=== PATIENT | male | born 1935 | race Caucasian/White ===

== ENCOUNTER 2018-02-15 08:57 | Outpatient (CLI) | payer MEDICARE, OTHER ==
[2018-02-15 09:32] LABS: BASOPHILS % (AUTO) 0.3 % (0-1); EOSINOPHILS # (AUTO) 0.2 X10'3 (0-0.9); EOSINOPHILS % (AUTO) 4.8 % (0-6); HEMATOCRIT 35.6 % (42.0-52.0); LYMPHOCYTES # (AUTO) 1.2 X10'3 (1.1-4.8); LYMPHOCYTES % (AUTO) 28.1 % (21-51); MEAN CORPUSCULAR HEMOGLOBIN 31.8 PG (27.0-31.0); MEAN CORPUSCULAR HGB CONC 33.8 % (33.0-36.5); MEAN CORPUSCULAR VOLUME 94.1 FL (78-98); MEAN PLATELET VOLUME 6.9 FL (7.4-10.4); MONOCYTES # (AUTO) 0.5 X10'3 (0-0.9); MONOCYTES % (AUTO) 10.7 % (2-12); NEUTROPHILS # (AUTO) 2.5 X10'3 (1.8-7.7); NEUTROPHILS % (AUTO) 56.1 % (42-75); PLATELET COUNT 187 X10'3 (140-440); RED BLOOD COUNT 3.79 X10'6 (4.70-6.10); RED CELL DISTRIBUTION WIDTH 13.8 % (11.5-14.5); WHITE BLOOD COUNT 4.4 X10'3 (4.5-11.0)
[2018-02-15 09:40] LABS: HEMOGLOBIN A1C 6.7 % (4.5-6.2)
[2018-02-15 09:45] LABS: ANION GAP 9 (8-16); BLOOD UREA NITROGEN 26 MG/DL (7-18); BUN/CREATININE RATIO 19.3 (5.4-32.0); CHLORIDE 107 MMOL/L (99-107); CREATININE 1.35 MG/DL (0.60-1.10); GLUCOSE 133 MG/DL (70-104); POTASSIUM 4.4 MMOL/L (3.5-5.1); SODIUM 143 MMOL/L (135-145); TOTAL CARBON DIOXIDE 27.1 MMOL/L (24-32)
[2018-02-15 09:46] LABS: ALANINE AMINOTRANSFERASE 19 U/L (12-78); ALBUMIN 3.3 G/DL (3.4-5.0); ALBUMIN/GLOBULIN RATIO 0.8 (1.1-1.5); ALKALINE PHOSPHATASE 55 IU/L (46-116); ASPARTATE AMINO TRANSFERASE 19 U/L (10-37); BILIRUBIN,TOTAL 0.5 MG/DL (0.1-1.0); CALCIUM 8.7 MG/DL (8.5-10.1); CHOLESTEROL 182 MG/DL (0-200); HDL CHOLESTEROL 45 MG/DL (35-60); LDL CHOLESTEROL 97 MG/DL (50-100); TOTAL PROTEIN 7.2 G/DL (6.4-8.2); TRIGLYCERIDES 254 MG/DL (20-135); eGFR 50 ML/MIN
== END 2018-02-15 23:59 | disposition home or self-care (01) ==
LOC: CARD DIAG 08:57
PROVIDERS: ATTEND Internal Medicine Cardiovascular Disease
DX: I08.1 Rheumatic disorders of both mitral and tricuspid valves (principal); I50.22 Chronic systolic (congestive) heart failure; Z95.2 Presence of prosthetic heart valve; Z87.891 Personal history of nicotine dependence
CPT/HCPCS: 36415; 80053; 80061; 83036; 85025; 93306

== ENCOUNTER 2018-07-10 13:06 | Outpatient (CLI) | payer MEDICARE, OTHER | END 2018-07-10 23:59 | disposition home or self-care (01) | LOC: CARD DIAG 13:06 | PROVIDERS: ATTEND Internal Medicine Cardiovascular Disease | DX: I08.1 Rheumatic disorders of both mitral and tricuspid valves (principal); I50.22 Chronic systolic (congestive) heart failure; Z87.891 Personal history of nicotine dependence | CPT/HCPCS: 93306 ==

== ENCOUNTER 2018-07-19 10:20 | Outpatient (CLI) | payer MEDICARE, OTHER ==
[2018-07-19 11:54] LABS: ALBUMIN 3.3 G/DL (3.4-5.0); ANION GAP 9 (8-16); BLOOD UREA NITROGEN 41 MG/DL (7-18); BUN/CREATININE RATIO 31.1 (5.4-32.0); CALCIUM 9.2 MG/DL (8.5-10.1); CHLORIDE 105 MMOL/L (99-107); CREATININE 1.32 MG/DL (0.60-1.10); GLUCOSE 134 MG/DL (70-104); POTASSIUM 4.2 MMOL/L (3.5-5.1); SODIUM 141 MMOL/L (135-145); TOTAL CARBON DIOXIDE 27.3 MMOL/L (24-32); eGFR 52 ML/MIN
== END 2018-07-19 23:59 | disposition home or self-care (01) ==
LOC: LAB 10:20
PROVIDERS: ATTEND Internal Medicine Cardiovascular Disease
DX: I51.7 Cardiomegaly (principal); I50.22 Chronic systolic (congestive) heart failure; Z87.891 Personal history of nicotine dependence
CPT/HCPCS: 36415; 71046; 80048

== ENCOUNTER 2019-05-07 13:02 | Outpatient (CLI) | payer MEDICARE, OTHER | END 2019-05-07 23:59 | disposition home or self-care (01) | LOC: CARD DIAG 13:02 | PROVIDERS: ATTEND Nurse Practitioner Adult Health | DX: I34.0 Nonrheumatic mitral (valve) insufficiency (principal); I50.30 Unspecified diastolic (congestive) heart failure; Z87.891 Personal history of nicotine dependence; Z95.1 Presence of aortocoronary bypass graft | CPT/HCPCS: 93306 ==

== ENCOUNTER 2019-12-24 14:25 | Inpatient (IN) | payer MEDICARE, OTHER ==
[~2019-12-24] VITALS: Ht 170.2 cm; Wt 94.5 kg
[2019-12-24] VITALS (8 sets, daily range): BP systolic 90–97; BP diastolic 43–51
--- NOTE | 2019-12-24 14:50 | NUR ---
REPORTED SXS AND HX OF FEVER TO PROVIDER KIMBERLY DEL CASTILLO. PT TO BE EVALUATED/SCREENED IN AMBULANCE BAY BY PROVIDER.
--- NOTE | 2019-12-24 14:59 | NUR ---
PT REPORTED HE WAS NOT FEELING WELL AND NOTED TO BE WITH INCREASED RESPIRATIONS. PTS O2 SATS STARTED TO DECLINE (78-84%). PROVIDER SINGH UPDATED AND PT TAKEN TO BED 5 PER BAR WELDER KELLY.
[2019-12-24 15:01] LABS: BASOPHILS % (AUTO) 0.3 % (0-1); EOSINOPHILS % (AUTO) 0 % (0-6); HEMATOCRIT 28.4 % (42.0-52.0); HEMOGLOBIN 9.5 g/dl (14.0-17.9); LYMPHOCYTES # (AUTO) 0.2 X10'3 (1.1-4.8); LYMPHOCYTES % (AUTO) 2.2 % (21-51); MEAN CORPUSCULAR HEMOGLOBIN 32.5 PG (27.0-31.0); MEAN CORPUSCULAR HGB CONC 33.5 g/dL (33.0-36.5); MEAN CORPUSCULAR VOLUME 97.1 FL (78-98); MEAN PLATELET VOLUME 7.6 FL (7.4-10.4); MONOCYTES # (AUTO) 0.3 X10'3 (0-0.9); MONOCYTES % (AUTO) 3.3 % (2-12); NEUTROPHILS # (AUTO) 7.3 X10'3 (1.8-7.7); NEUTROPHILS % (AUTO) 94.2 % (42-75); PLATELET COUNT 122 X10'3 (140-440); RED BLOOD COUNT 2.93 X10'6 (4.70-6.10); RED CELL DISTRIBUTION WIDTH 14.1 % (11.5-14.5); WHITE BLOOD COUNT 7.8 X10'3 (4.5-11.0)
[2019-12-24 15:35] LABS: ALANINE AMINOTRANSFERASE 29 U/L (12-78); ALBUMIN/GLOBULIN RATIO 0.7 (1.1-1.5); ALKALINE PHOSPHATASE 52 IU/L (46-116); ANION GAP 14 (8-16); ASPARTATE AMINO TRANSFERASE 55 U/L (10-37); BILIRUBIN,TOTAL 0.4 MG/DL (0.1-1.0); BLOOD UREA NITROGEN 59 MG/DL (7-18); CALCIUM 8.3 MG/DL (8.5-10.1); CHLORIDE 106 MMOL/L (99-107); CREATININE 2.68 MG/DL (0.60-1.10); GLUCOSE 191 MG/DL (70-104); POTASSIUM 4.4 MMOL/L (3.5-5.1); SODIUM 140 MMOL/L (135-145); TOTAL CARBON DIOXIDE 20.1 MMOL/L (24-32); TOTAL PROTEIN 7.1 G/DL (6.4-8.2); eGFR 23 ML/MIN
[2019-12-24] MEDS ORDERED: ondansetron/PF 4mg/2ml inj IV ONE (15:35)
[2019-12-24 15:56] LABS: ABG BASE EXCESS -8.2 mmol/L (-2.0-3.0); ABG HCO3 16.7 mmol/L (22.0-26.0); ABG OXYGEN SATURATION 91.2 % (95-98); ABG PCO2 (T) 31.8 mmHg (35.0-45.0); ABG PH (T) 7.337 (7.350-7.450); ABG PO2 (T) 62.6 mmHg (83-108); ALLEN'S TEST POSITIVE; FCOHb 0.3 % (0.5-1.5); FLOW 2 L/min; FMetHb 0.1 % (0.3-1.12); FO2Hb 90.8 % (94-100); PATIENT TEMPERATURE 36.9; TOTAL HEMOGLOBIN 10.5 G/dl (14.0-17.9)
[2019-12-24] MEDS ORDERED: CefTRIAXone 2gm/D5W 50ml 50 ML IV ONE (16:15)
--- NOTE | 2019-12-24 16:15 | NUR ---
CENTRAL LINE PLACEMENT VERIFIED VIA ULTRASOUND AT BEDSIDE BY MIGUEL ANGEL ARREOLA TO USE LINE PER .
[2019-12-24] MEDS ORDERED: heparin 10,000 units/1 ML INJ IV ONE (16:20)
[2019-12-24] MEDS ORDERED: heparin 10,000 units/1 ML INJ IV PRN (16:20)
[2019-12-24] MEDS ORDERED: doxycycline inj 100 MG in normal saline 100ml IV soln 100 ML IV ONE (16:20)
[2019-12-24 16:38] LABS: CLARITY,URINE SLIGHTLY CLOUDY (Clear); COLOR,URINE YELLOW (Yellow); GLUCOSE, URINE NEGATIVE (Neg); KETONES,URINE NEGATIVE (Neg); LEUKOCYTE ESTERASE ,URINE TRACE (Neg); NITRITES, URINE NEGATIVE (Neg); OCCULT BLOOD,URINE TRACE-INTACT (Neg); PROTEIN,URINE NEGATIVE (Neg); UROBILINOGEN,URINE 0.2 E.U/dL (0.2-1.0)
[2019-12-24 16:41] LABS: UA COLLECTION TYPE VOIDED
[2019-12-24] MEDS: heparin 25,000 UNIT/250ml bag 250 ML IV SCH (16:43)
[2019-12-24 16:46] LABS: BACTERIA,URINE FEW /HPF (Neg); RBC,URINE 0-2 /HPF (0-2); WBC,URINE 0-4 /HPF (0-4)
[2019-12-24 16:47] LABS: SQUAMOUS EPITHELIAL CELL,UR MODERATE /LPF (FEW)
--- NOTE | 2019-12-24 16:59 | NUR ---
FORM MAKER AT BEDSIDE.
[2019-12-24 17:33] LABS: D-DIMER 1.17 MG/L FEU (0-0.50); PARTIAL THROMBOPLASTIN TIME 36 SECONDS (22-32)
[2019-12-24] MEDS ORDERED: magnesium Cl slow-release 64mg tablet PO PRN (17:55)
[2019-12-24] MEDS ORDERED: magnesium 4gm in 100ml NS 100 ML IV PRN (17:55)
[2019-12-24] MEDS ORDERED: potassium Cl 20 mEq SR tablet PO PRN ×2 (17:55)
[2019-12-24] MEDS ORDERED: magnesium 2GM in 50ml NS 50 ML IV PRN (17:55)
[2019-12-24] MEDS ORDERED: acetaminophen 325mg tablet PO PRN (17:55)
[2019-12-24] MEDS ORDERED: potassium CL 10mEq/100ml bag 100 ML IV PRN ×2 (17:55)
[2019-12-24] MEDS ORDERED: ondansetron/PF 4mg/2ml inj IV PRN (17:55)
[2019-12-24] MEDS ORDERED: furosemide 40mg/4ml inj IV ONE (18:00)
[2019-12-24] MEDS ORDERED: DOPamine 400mg/D5W 250ml 250 ML IV SCH (18:45)
--- NOTE | 2019-12-24 18:46 | NUR ---
CONTACTED DR OSUNA REGARDING PATIENT'S HYPOTENSION 82/42. DR OSUNA STATED THAT THE PATIENT NEEDS TO BE ON PRESSER AND ADMITTED TO THE ICU. DR OSUNA REQUESTED TO SPEAK TO DR DE LA CRUZ AT THIS TIME. JUAN HARRIS TOOK CALL.
[2019-12-24] MEDS ORDERED: OMEP-50 PO (19:10)
[2019-12-24] MEDS ORDERED: TERA1CAP4 PO (19:10)
[2019-12-24] MEDS ORDERED: SACU1TAB4 PO (19:10)
[2019-12-24] MEDS ORDERED: BUME2TAB7 PO (19:10)
[2019-12-24] MEDS ORDERED: CARV25TA2 PO (19:10)
[2019-12-24] MEDS ORDERED: GLIP2.5T3 PO (19:10)
[2019-12-24] MEDS ORDERED: RIVA15TA PO (19:10)
[2019-12-24] MEDS ORDERED: ATOR10TA70 PO (19:10)
--- NOTE | 2019-12-24 19:31 | NUR ---
CONTACT INFO: CHRIS "GRANDDAUGHTER":
[2019-12-24] MEDS: docusate sod 100mg capsule PO SCH (20:00)
[2019-12-24] MEDS: K and/or MAG REPLACEMENT MC SCH (20:00)
[2019-12-24 20:10] LABS: ABG BASE EXCESS -3.4 mmol/L (-2.0-3.0); ABG OXYGEN SATURATION 96.4 % (95-98); ABG PCO2 (T) 29.8 mmHg (35.0-45.0); ABG PH (T) 7.443 (7.350-7.450); ABG PO2 (T) 80.6 mmHg (83-108); ALLEN'S TEST POSITIVE; FCOHb 0.3 % (0.5-1.5); FMetHb 0.3 % (0.3-1.12); FO2Hb 95.8 % (94-100); PATIENT TEMPERATURE 36.6; TIDAL VOLUME 664 mL; TOTAL HEMOGLOBIN 10.2 G/dl (14.0-17.9)
--- NOTE | 2019-12-24 20:45 | NUR ---
Pt arrived on unit vitals obtained, mrsa obtained, skin check performed. Will monitor. Report received from RODNEY Garcia
--- NOTE | 2019-12-24 21:05 | NUR ---
Adalid [phone] Kwesi [phone] [facility].
--- NOTE | 2019-12-24 21:40 | NUR ---
Sent to Ash PAGER ID: [phone] MESSAGE: ROOM 3014 B Joshua Luna: Trops: 0.34 0.38 most recent 0.57 on heparin and dobut gtt. New EKG shows ST depression can you come take a look? Thanks, Christine [phone]
[2019-12-24] MEDS ORDERED: ASPI-611 PO (23:19)
[2019-12-24] MEDS ORDERED: FERR325T32 PO (23:19)
--- NOTE | 2019-12-24 23:58 | NUR ---
Sent to [facility] PAGER ID: [phone] MESSAGE: [id number] Joshua Luna: just desireei stopped heparin gtt per protocol for 120 min for critical ptt of 122. Will restart at 0145 and decrease per protocol ThanksChristine (161 character
[2019-12-25] VITALS (17 sets, daily range): BP systolic 83–137; BP diastolic 37–71
--- NOTE | 2019-12-25 00:06 | NUR ---
Patient tried to lay on left side with feet elevated due to his back pain. His BP cannot tolerate this and dropped tp 77/40's so we have sat him back up systolic 100/35. Tanner BELT MAKER HELPER came to see patient and is ok with BP where it is at this time.
[2019-12-25 03:03] LABS: ALBUMIN 2.6 G/DL (3.4-5.0); ANION GAP 10 (8-16); BLOOD UREA NITROGEN 61 MG/DL (7-18); BUN/CREATININE RATIO 26.6 (5.4-32.0); CALCIUM 8.1 MG/DL (8.5-10.1); CHLORIDE 107 MMOL/L (99-107); CREATININE 2.29 MG/DL (0.60-1.10); GLUCOSE 132 MG/DL (70-104); MAGNESIUM 1.7 MG/DL (1.5-2.4); POTASSIUM 4.1 MMOL/L (3.5-5.1); SODIUM 140 MMOL/L (135-145); TOTAL CARBON DIOXIDE 23.4 MMOL/L (24-32); eGFR 27 ML/MIN
--- NOTE | 2019-12-25 03:21 | NUR ---
Sent to [facility] PAGER ID: [phone] MESSAGE: room 3014B Martín, Gert: 12 hr trop 0.73 Thank you, Christine [phone]
--- NOTE | 2019-12-25 03:21 | NUR ---
Spoke with Tanner GUTIERRES earlier in the night. She stated that patients Bp is ok to be slightly lower as long as Map remains high 50's to 60's. Patient BP has been very volatile tonight. Map has been mostly high 50's to 60's. Tanner GUTIERRES informed and is ok with this. I will inform Dr. Aleman as well.
--- NOTE | 2019-12-25 03:26 | NUR ---
room 3014 Joshua Resendiz: Patient BP has been up and down. Map mostly high 50's low 60's varying to mid 50's on dopamine gtt @ 5 mcg/kg/min Thank you, Christine x [phone]
[2019-12-25 04:42] LABS: BASOPHILS # (AUTO) 0.1 X10'3 (0-0.2); BASOPHILS % (AUTO) 0.6 % (0-1); EOSINOPHILS % (AUTO) 0 % (0-6); LYMPHOCYTES # (AUTO) 0.2 X10'3 (1.1-4.8); LYMPHOCYTES % (AUTO) 1.5 % (21-51); MEAN CORPUSCULAR HEMOGLOBIN 32.1 PG (27.0-31.0); MEAN CORPUSCULAR HGB CONC 33.3 g/dL (33.0-36.5); MEAN CORPUSCULAR VOLUME 96.4 FL (78-98); MEAN PLATELET VOLUME 8.1 FL (7.4-10.4); MONOCYTES # (AUTO) 0.9 X10'3 (0-0.9); MONOCYTES % (AUTO) 8.3 % (2-12); NEUTROPHILS # (AUTO) 10.1 X10'3 (1.8-7.7); NEUTROPHILS % (AUTO) 89.6 % (42-75); PLATELET COUNT 101 X10'3 (140-440); RED CELL DISTRIBUTION WIDTH 14.2 % (11.5-14.5); WHITE BLOOD COUNT 11.3 X10'3 (4.5-11.0)
--- NOTE | 2019-12-25 05:03 | NUR ---
Sent to [facility] PAGER ID: [phone] MESSAGE: room 3014 B Joshua Luna: ELAYNE PTT 103 STOPPED heparin per protocol for 2 hrs Thanks, Christine [phone]
[2019-12-25 05:12] LABS: TOTAL CELLS COUNTED 100
[2019-12-25 05:13] LABS: GIANT PLATELET FEW; PLATELET ESTIMATE DECREASED
--- NOTE | 2019-12-25 06:32 | NUR ---
Patient in room PCU 3014. I have received report from Christine STEVENS and had the opportunity to ask questions and assume patient care.
--- NOTE | 2019-12-25 06:32 | NUR ---
Problems reprioritized. Patient report given, questions answered & plan of care reviewed with RODNEY Jones.
--- NOTE | 2019-12-25 06:33 | NUR ---
Patient in room PCU 3014. I have received report from Christine STEVENS and had the opportunity to ask questions and assume patient care.
[2019-12-25] MEDS ORDERED: ferrous sulfate 325mg tablet PO SCH (08:00)
[2019-12-25] MEDS: K and/or MAG REPLACEMENT MC SCH ×2 (08:00→20:00)
[2019-12-25] MEDS: docusate sod 100mg capsule PO SCH ×2 (08:20→20:20)
[2019-12-25] MEDS: DOPamine 400mg/D5W 250ml 250 ML IV SCH (09:06)
--- NOTE | 2019-12-25 09:31 | NUR ---
Sent a page to Dr Bernard, monitoring the patient closely. PAGER ID: [phone] MESSAGE: Karen STEVENS [phone] 3014B G Alethea, patient is a diabetic, can I have hyper/hypoglycemia orders. Do you want this patient still on a heparin gtt? thanks!
--- NOTE | 2019-12-25 11:08 | NUR ---
Sent a page to Dr Bernard PAGER ID: [phone] MESSAGE: Karen STEVENS [phone] 3014B G Yahirke, patient c/o pain, nothing ordered for pain, can I have a prn , thank you! Will continue to monitor the patient closely.
[2019-12-25] MEDS ORDERED: dextrose 50%-water 50ml dispensing syringe IV PRN ×2 (11:15)
[2019-12-25] MEDS ORDERED: dextrose ORAL solution 15 GM/59 ML bottle PO PRN ×2 (11:15)
[2019-12-25] MEDS ORDERED: glucagon, human recombinant 1mg kit SUBCUT PRN (11:15)
[2019-12-25] MEDS ORDERED: MESSAGE TO PHARMACY PO ONE (11:15)
--- NOTE | 2019-12-25 11:18 | NUR ---
Sent a page to Dr Bernard re: PAGER ID: [phone] MESSAGE: Karen STEVENS [phone] 3014B G Cruzitokarla, patient has 3 positive blood cultures, 1 anaerobic and 2 aerobic, gram positive cocci in chains/pairs, thanks! Will continue to monitor closely.
[2019-12-25] MEDS: traMADol 50MG tablet PO PRN ×2 (11:26→20:21)
[2019-12-25] MEDS: VANCOmycin 1250MG/NS 250ml Bag 250 ML IV SCH (14:06)
[2019-12-25 14:26] LABS: HEMOGLOBIN A1C 7.5 % (4.5-6.2)
--- NOTE | 2019-12-25 15:09 | NUR ---
Spoke to Adalid, the patients granddaughter, and updated her on the patients plan of care.
--- NOTE | 2019-12-25 15:31 | NUR ---
Sent a page to Dr Marco Antonio thurman PAGER ID: [phone] MESSAGE: Karen STEVENS [phone] 3014B G Jeremy, c/o new 04/30 neck pain, states tramadol isn't working, visibly uncomfortable, please advise.
[2019-12-25] MEDS: heparin 25,000 UNIT/250ml bag 250 ML IV SCH (17:33)
--- NOTE | 2019-12-25 17:53 | NUR ---
[place] documentation: I have reviewed and agree with all interventions, assessments performed and documented by Tala STEVENS. [place] Medication Administration: For this medication-pass time frame, all medication were reviewed, dispensed, administered and documented per hospital policy by Tala STEVENS.
--- NOTE | 2019-12-25 18:08 | NUR ---
Problems reprioritized. Patient report given, questions answered & plan of care reviewed with Christine STEVENS.
--- NOTE | 2019-12-25 18:08 | NUR ---
Problems reprioritized. Patient report given, questions answered & plan of care reviewed with Christine STEVENS.
--- NOTE | 2019-12-25 18:30 | NUR ---
Patient in room PCU 3014. I have received report from RODNEY Jones and had the opportunity to ask questions and assume patient care.
[2019-12-25] MEDS: insulin glargine (Lantus) pen - multi-dose SQ SCH (21:00)
--- NOTE | 2019-12-25 21:10 | NUR ---
Sent to [facility] PAGER ID: [phone] MESSAGE: room 3014B Joshua Resendiz: Frank can you call to discuss a few things about this patient when you have time? Thank you, Christine [phone]
[2019-12-25] MEDS ORDERED: cyclobenzaprine 10mg tablet PO PRN (21:20)
--- NOTE | 2019-12-25 21:58 | NUR ---
sent to bipin PAGER ID: [phone] MESSAGE: [id number] Martín Lewis : tried to catch you Most recent TROP 0.87 up from 0.73 thanks, Christine [phone]
[2019-12-26] VITALS (11 sets, daily range): BP systolic 95–121; BP diastolic 43–87
[2019-12-26] MEDS: ipratropium/albuterol 3ml nebule IH PRN ×2 (00:16→15:52)
[2019-12-26] MEDS: DOPamine 400mg/D5W 250ml 250 ML IV SCH ×2 (00:24→14:22)
[2019-12-26 03:17] LABS: ALBUMIN 2.3 G/DL (3.4-5.0); ANION GAP 8 (8-16); BASOPHILS % (AUTO) 0.5 % (0-1); BLOOD UREA NITROGEN 59 MG/DL (7-18); BUN/CREATININE RATIO 32.4 (5.4-32.0); CALCIUM 8.2 MG/DL (8.5-10.1); CHLORIDE 106 MMOL/L (99-107); CREATININE 1.82 MG/DL (0.60-1.10); GLUCOSE 190 MG/DL (70-104); HEMOGLOBIN 9.9 g/dl (14.0-17.9); MONOCYTES # (AUTO) 2.4 X10'3 (0-0.9); SODIUM 139 MMOL/L (135-145); TOTAL CARBON DIOXIDE 24.9 MMOL/L (24-32); eGFR 36 ML/MIN
[2019-12-26 03:19] LABS: BASOPHILS # (AUTO) 0.1 X10'3 (0-0.2); EOSINOPHILS % (AUTO) 0 % (0-6); HEMATOCRIT 29.6 % (42.0-52.0); LYMPHOCYTES # (AUTO) 0.6 X10'3 (1.1-4.8); LYMPHOCYTES % (AUTO) 5.6 % (21-51); MEAN CORPUSCULAR HEMOGLOBIN 32.2 PG (27.0-31.0); MEAN CORPUSCULAR HGB CONC 33.4 g/dL (33.0-36.5); MEAN CORPUSCULAR VOLUME 96.4 FL (78-98); MEAN PLATELET VOLUME 9.4 FL (7.4-10.4); MONOCYTES % (AUTO) 24.4 % (2-12); NEUTROPHILS # (AUTO) 6.9 X10'3 (1.8-7.7); NEUTROPHILS % (AUTO) 69.5 % (42-75); PLATELET COUNT 103 X10'3 (140-440); RED BLOOD COUNT 3.07 X10'6 (4.70-6.10); RED CELL DISTRIBUTION WIDTH 14.2 % (11.5-14.5); WHITE BLOOD COUNT 9.9 X10'3 (4.5-11.0)
[2019-12-26 03:56] LABS: TOTAL CELLS COUNTED 100
[2019-12-26 03:58] LABS: GIANT PLATELET FEW; PLATELET ESTIMATE DECREASED
--- NOTE | 2019-12-26 06:26 | NUR ---
Problems reprioritized. Patient report given, questions answered & plan of care reviewed with RODNEY Prince.
--- NOTE | 2019-12-26 06:26 | NUR ---
Patient in room PCU 3014B. I have received report from Christine STEVENS and had the opportunity to ask questions and assume patient care. Patient laying in bed, eyes closed, no signs of distress. Heparin gtt infusing @ 400 units/hr. Dopamine infusing @ 5mcg/kg/min.
[2019-12-26] MEDS: docusate sod 100mg capsule PO SCH ×2 (07:35→20:36)
[2019-12-26] MEDS: traMADol 50MG tablet PO PRN (07:35)
[2019-12-26] MEDS: K and/or MAG REPLACEMENT MC SCH ×2 (08:00→20:00)
[2019-12-26] MEDS ORDERED: CefTRIAXone 2gm/D5W 50ml 50 ML IV SCH (08:45)
--- NOTE | 2019-12-26 11:44 | NUR ---
PAGER ID: [phone] MESSAGE: Niki chavis [phone]. RE Mercedes Luna [id number]. Pt having significant neck/shoulder pain and stiffness. Got one time dose of flexeril PO last night with some relief. Can we get something PRN for this? Thanks!
[2019-12-26] MEDS ORDERED: cyclobenzaprine 10mg tablet PO ONE (12:10)
--- NOTE | 2019-12-26 13:02 | NUR ---
Pt with A1c 7.5% seen at bedside. Pt states he has T2DM and takes DM medications per rx. Pt denies questions about DM management at this time. Pt provided with written DM education with referral to outpatient CDE course. Pt currently reporting no appetite which is evident with documented 25-50% PO intake on heart healthy CHO controlled diet not meeting nutrient needs. Pt reports low appetite is new onset since admit and was eating well MYSQL DBA. Pt provided with alternative menu to provide additional food options. Pt agrees to yogurt and cottage cheese BIDBD and soup q lunch, d/w dietary. Pt denies food allergies or difficulty chewing/swallowing. LBM 5/4 which pt reports was in the morning and c/o constipation. Pt receiving routine bowel care and reports drinking prune juice yesterday. Pt agrees to power pudding with dinner tonight, d/w dietary. RD contact information provided and pt encouraged to reach out. Will continue to follow. Addendum: 12/26/19 at [address] Amended: Links added.
[2019-12-26] MEDS: VANCOmycin 1250MG/NS 250ml Bag 250 ML IV SCH (13:36)
--- NOTE | 2019-12-26 15:30 | NUR ---
Notified by [employer] that patient dropped oxygen saturation into the mid 60% on 3.5L NC. Went to bedside immediately and oxygen saturation was in the mid 70's with increased SOB/cough and increased RR. Pt states increased SOB and cough started around 1200 today but worse in the past few minutes. Patient ill appearing with increased RR. After several minutes and cough/deep breathe patient oxygen saturation improved to mid 90% on 3.5L NC. Paged Dr. Benavidez regarding patient at this time. disciplinary hearing officer, Lizzeth/Julia, also notified and evaluated patient at bedside.
--- NOTE | 2019-12-26 15:37 | NUR ---
PAGER ID: [phone] MESSAGE: Niki chavis [phone]. RE Mercedes Luna 7194H. Pt desated to the mid 60's% on 3.5L NC. Took several minutes to recover, c/o increased SOB and cough. Ill appearing. Do you want any additional interventions? Paging RT for neb. Thanks!
--- NOTE | 2019-12-26 15:44 | NUR ---
Orders from Dr. Benavidez received for stat ABG, RT eval and treat as well as neb by RT and will come eval at bedside. tire mold engraver updated on plan of care. Will continue to closely monitor the patient.
[2019-12-26 16:01] LABS: ABG BASE EXCESS -3.1 mmol/L (-2.0-3.0); ABG HCO3 21.1 mmol/L (22.0-26.0); ABG OXYGEN SATURATION 93.7 % (95-98); ABG PH (T) 7.399 (7.350-7.450); ABG PO2 (T) 68.6 mmHg (83-108); ALLEN'S TEST POSITIVE; FCOHb 0.3 % (0.5-1.5); FLOW 4 L/min; FMetHb 0.2 % (0.3-1.12); FO2Hb 93.2 % (94-100); TOTAL HEMOGLOBIN 11.3 G/dl (14.0-17.9)
--- NOTE | 2019-12-26 16:25 | NUR ---
Problems reprioritized. Patient report given, questions answered & plan of care reviewed with Lion RN. Patient sitting up in bed, eating dinner, states that he feels "a little better than earlier", VS stable at time of report.
[2019-12-26] MEDS ORDERED: HYDROcodone/acetaminophen 5mg/325mg tablet PO PRN (16:45)
[2019-12-26] MEDS: normal saline 1000ml 1,000 ML IV SCH (16:50)
--- NOTE | 2019-12-26 18:30 | NUR ---
Patient in room PCU 3014. I have received report from Niki Ortega RN and had the opportunity to ask questions and assume patient care.
[2019-12-26] MEDS: atorvastatin 10mg tablet PO SCH (20:36)
[2019-12-26] MEDS: Terazosin 1mg capsule PO SCH (20:36)
[2019-12-26] MEDS: carVEDilol 3.125mg tablet PO SCH (20:36)
[2019-12-26] MEDS: lactobacillus rhamnosus 10,000 MMU CELLS/CAPSULE PO SCH (20:36)
[2019-12-26] MEDS: insulin glargine (Lantus) pen - multi-dose SQ SCH (21:00)
[2019-12-27] VITALS (13 sets, daily range): BP systolic 95–137; BP diastolic 49–107
[2019-12-27] MEDS: DOPamine 400mg/D5W 250ml 250 ML IV SCH ×3 (05:31→22:52)
[2019-12-27 05:53] LABS: HEMOGLOBIN 9.7 g/dl (14.0-17.9); RED CELL DISTRIBUTION WIDTH 14.1 % (11.5-14.5); WHITE BLOOD COUNT 7.9 X10'3 (4.5-11.0)
[2019-12-27 05:57] LABS: HEMATOCRIT 28.5 % (42.0-52.0); MEAN CORPUSCULAR HEMOGLOBIN 32.5 PG (27.0-31.0); MEAN CORPUSCULAR HGB CONC 33.9 g/dL (33.0-36.5); MEAN CORPUSCULAR VOLUME 95.7 FL (78-98); MEAN PLATELET VOLUME 9.7 FL (7.4-10.4); PLATELET COUNT 92 X10'3 (140-440); RED BLOOD COUNT 2.98 X10'6 (4.70-6.10)
[2019-12-27 06:08] LABS: ALBUMIN 2.1 G/DL (3.4-5.0); ANION GAP 6 (8-16); BLOOD UREA NITROGEN 54 MG/DL (7-18); BUN/CREATININE RATIO 39.4 (5.4-32.0); CALCIUM 8.2 MG/DL (8.5-10.1); CHLORIDE 108 MMOL/L (99-107); CREATININE 1.37 MG/DL (0.60-1.10); GLUCOSE 146 MG/DL (70-104); MAGNESIUM 2.1 MG/DL (1.5-2.4); SODIUM 140 MMOL/L (135-145); TOTAL CARBON DIOXIDE 25.8 MMOL/L (24-32); eGFR 49 ML/MIN
--- NOTE | 2019-12-27 06:27 | NUR ---
Patient in room PCU 3014B. I have received report from Lion RN and had the opportunity to ask questions and assume patient care. Patient laying in bed, eyes closed, no signs of distress. Will continue to monitor.
--- NOTE | 2019-12-27 06:27 | NUR ---
Problems reprioritized. Patient report given, questions answered & plan of care reviewed with Niki Ortega RN.
--- NOTE | 2019-12-27 06:37 | NUR ---
Patient in room U 3014. I have received report from Lion RN and had the opportunity to ask questions and assume patient care. Patient sleeping in room.
[2019-12-27 06:48] LABS: PLATELET ESTIMATE DECREASED; POIKILOCYTOSIS FEW; POLYCHROMASIA 1+; TOTAL CELLS COUNTED 100
[2019-12-27] MEDS: K and/or MAG REPLACEMENT MC SCH ×2 (08:00→19:39)
[2019-12-27] MEDS ORDERED: phenazopyridine 100mg tablet PO SCH (08:00)
[2019-12-27] MEDS ORDERED: polyethylene glycol 3350 17gm powd pack PO SCH (08:00)
[2019-12-27] MEDS ORDERED: cefazolin/dext.iso 2gm/100ml 100 ML IV SCH (08:00)
--- NOTE | 2019-12-27 08:48 | NUR ---
PAGER ID: [phone] MESSAGE: Niki x [phone]. RE Mercedes Luna 0797H. Saw order for ancef was discontinued, did you want this abx given or no? Only has orders for Vanco at this time. Thanks!
[2019-12-27] MEDS: lactobacillus rhamnosus 10,000 MMU CELLS/CAPSULE PO SCH ×2 (09:10→19:33)
[2019-12-27] MEDS: pantoprazole 40mg Tablet.DR PO SCH (09:10)
[2019-12-27] MEDS: carVEDilol 3.125mg tablet PO SCH ×2 (09:11→19:33)
[2019-12-27] MEDS: polyethylene glycol 3350 17gm powd pack PO SCH (09:11)
[2019-12-27] MEDS: rivaroxaban 10mg tablet PO SCH (09:11)
[2019-12-27] MEDS: docusate sod 100mg capsule PO SCH ×2 (09:11→19:33)
[2019-12-27] MEDS: VANCOmycin 1250MG/NS 250ml Bag 250 ML IV SCH (13:14)
[2019-12-27] MEDS: phenazopyridine 100mg tablet PO SCH ×2 (13:14→19:33)
[2019-12-27] MEDS: normal saline 1000ml 1,000 ML IV SCH (13:14)
--- NOTE | 2019-12-27 15:11 | NUR ---
PAGER ID: [phone] MESSAGE: Niki Danica chavis [phone]. RE Mercedes Luna [id number]. Pt not passing urine, bladder scan on multiple attempts is 35-45mL in bladder. Has been receiving IVF and PO fluids but not outputting urine. Please advise? Thanks!
--- NOTE | 2019-12-27 15:45 | NUR ---
Per Dr. Benavidez, attempt to trial patient off dopamine. Patient's blood pressure was 140/117, after 7 minutes without dopamine patient blood pressure decreased to 91/70. Restarted dopamine and paged hospitalist. PAGER ID: [phone] MESSAGE: Niki chavis [phone]. Mercedes Ramirez 7319S. ELAYNE attempted to trial patient off dopamine. BP was 140/117, off dopamine for 7 minutes and BP 91/70. Restarted dopamine at this time. Thanks!
--- NOTE | 2019-12-27 15:46 | NUR ---
Orders from Dr. Benavidez to change to dopamine to 2.5mcg/kg/min.
[2019-12-27] MEDS: cefazolin/dext.iso 2gm/100ml 100 ML IV SCH (16:06)
--- NOTE | 2019-12-27 18:20 | NUR ---
Problems reprioritized. Patient report given, questions answered & plan of care reviewed with Jamie STEVENS.
--- NOTE | 2019-12-27 18:20 | NUR ---
Patient in room PCU 3014. I have received report from Niki STEVENS and had the opportunity to ask questions and assume patient care.
[2019-12-27] MEDS: atorvastatin 10mg tablet PO SCH (20:25)
[2019-12-27] MEDS: insulin Lispro (HumaLOG) vial - multi-dose SQ SCH (20:25)
[2019-12-27] MEDS: Terazosin 1mg capsule PO SCH (20:26)
[2019-12-27] MEDS: insulin glargine (Lantus) pen - multi-dose SQ SCH (21:46)
[2019-12-28] VITALS (8 sets, daily range): BP systolic 101–129; BP diastolic 51–98
[2019-12-28] MEDS: cefazolin/dext.iso 2gm/100ml 100 ML IV SCH ×3 (00:17→16:53)
[2019-12-28] MEDS: normal saline 1000ml 1,000 ML IV SCH ×2 (01:38→14:39)
[2019-12-28 05:27] LABS: BASOPHILS % (AUTO) 0.3 % (0-1); EOSINOPHILS # (AUTO) 0.1 X10'3 (0-0.9); EOSINOPHILS % (AUTO) 1.6 % (0-6); HEMATOCRIT 26.9 % (42.0-52.0); LYMPHOCYTES # (AUTO) 0.9 X10'3 (1.1-4.8); LYMPHOCYTES % (AUTO) 12.5 % (21-51); MEAN CORPUSCULAR HGB CONC 33.6 g/dL (33.0-36.5); MEAN CORPUSCULAR VOLUME 95.2 FL (78-98); MEAN PLATELET VOLUME 9.4 FL (7.4-10.4); MONOCYTES # (AUTO) 1.2 X10'3 (0-0.9); MONOCYTES % (AUTO) 16.5 % (2-12); NEUTROPHILS % (AUTO) 69.1 % (42-75); PLATELET COUNT 87 X10'3 (140-440); RED BLOOD COUNT 2.82 X10'6 (4.70-6.10); RED CELL DISTRIBUTION WIDTH 13.9 % (11.5-14.5); WHITE BLOOD COUNT 7.3 X10'3 (4.5-11.0)
[2019-12-28 05:42] LABS: ANION GAP 8 (8-16); BLOOD UREA NITROGEN 51 MG/DL (7-18); BUN/CREATININE RATIO 38.1 (5.4-32.0); CALCIUM 8.2 MG/DL (8.5-10.1); CHLORIDE 109 MMOL/L (99-107); CREATININE 1.34 MG/DL (0.60-1.10); GLUCOSE 158 MG/DL (70-104); MAGNESIUM 1.9 MG/DL (1.5-2.4); POTASSIUM 3.6 MMOL/L (3.5-5.1); SODIUM 141 MMOL/L (135-145); TOTAL CARBON DIOXIDE 24.4 MMOL/L (24-32); eGFR 51 ML/MIN
--- NOTE | 2019-12-28 06:00 | NUR ---
Patient in [place] [address]. I have received report from and had the opportunity to ask questions and assume patient care. Addendum: 12/28/19 at 1024 by Kashif Payan RN Patient in room [place] [address]. I have received report from Jamie STEVENS and had the opportunity to ask questions and assume patient care.
--- NOTE | 2019-12-28 06:05 | NUR ---
Pt complains of SOB, chest and stomach pain, and is visibly anxious. His SBP was 156 so his dopamine was paused. Will notify MD and continually monitor pts BP. cryptologic technician said no change in rhythm. Medicated pt with norco and he said shortly after he felt a bit better.
[2019-12-28] MEDS: HYDROcodone/acetaminophen 10/325mg tab PO PRN ×2 (06:22→18:44)
[2019-12-28 06:40] LABS: PLATELET ESTIMATE DECREASED; TOTAL CELLS COUNTED 100
--- NOTE | 2019-12-28 06:53 | NUR ---
Sent page to Marco Antonio PAGER ID: [phone] [facility] 2.5 mcg of Dopamine and I paused it due to his SBP jumping to 156 and him feeling anxious. His SBP is hanging out around 120s with it off so far. 1390 Ese
--- NOTE | 2019-12-28 07:18 | NUR ---
Problems reprioritized. Patient report given, questions answered & plan of care reviewed with Francine STEVENS.
--- NOTE | 2019-12-28 07:22 | NUR ---
Sent page to Erin: "Pt [facility] room 3014B was on 2.5 mcg of Dopamine and I paused it due to his SBP jumping to 156 and him feeling anxious. His SBP is hanging out around 120s with it off so far. 2216 Ese"
[2019-12-28] MEDS: K and/or MAG REPLACEMENT MC SCH ×2 (08:00→20:00)
[2019-12-28] MEDS: insulin Lispro (HumaLOG) vial - multi-dose SQ SCH ×3 (08:48→18:47)
[2019-12-28] MEDS: polyethylene glycol 3350 17gm powd pack PO SCH (09:42)
[2019-12-28] MEDS: rivaroxaban 10mg tablet PO SCH (09:46)
[2019-12-28] MEDS: lactobacillus rhamnosus 10,000 MMU CELLS/CAPSULE PO SCH ×2 (09:47→21:08)
[2019-12-28] MEDS: phenazopyridine 100mg tablet PO SCH ×3 (09:47→18:01)
[2019-12-28] MEDS: pantoprazole 40mg Tablet.DR PO SCH (09:47)
[2019-12-28] MEDS: docusate sod 100mg capsule PO SCH ×2 (09:47→21:07)
[2019-12-28] MEDS: carVEDilol 3.125mg tablet PO SCH ×2 (09:47→21:08)
[2019-12-28] MEDS ORDERED: tamsulosin 0.4mg capsule PO ONE (10:10)
--- NOTE | 2019-12-28 10:22 | NUR ---
Problems reprioritized. Patient report given, questions answered & plan of care reviewed with Anitha STEVENS.
[2019-12-28] MEDS ORDERED: VANCOMYCIN LEVEL IV ONE (13:30)
[2019-12-28] MEDS: VANCOmycin 1250MG/NS 250ml Bag 250 ML IV SCH (14:46)
[2019-12-28] MEDS: lactose-reduced food (Ensure Enlive) - 237ml bottle PO SCH (18:00)
--- NOTE | 2019-12-28 18:30 | NUR ---
Patient in room PCU 3014-B. I have received report from RODNEY Escamilla and had the opportunity to ask questions and assume patient care. Patient denies CP. SOB. dizziness, n/v, and rated pain 0/10
--- NOTE | 2019-12-28 18:59 | NUR ---
Problems reprioritized. Patient report given, questions answered & plan of care reviewed with RODNEY Gleason.
[2019-12-28] MEDS: Terazosin 1mg capsule PO SCH (21:07)
[2019-12-28] MEDS: atorvastatin 10mg tablet PO SCH (21:07)
[2019-12-28] MEDS: tamsulosin 0.4mg capsule PO SCH (21:08)
[2019-12-28] MEDS: insulin glargine (Lantus) pen - multi-dose SQ SCH (21:30)
[2019-12-29] VITALS (8 sets, daily range): BP systolic 92–152; BP diastolic 50–83
[2019-12-29] MEDS: cefazolin/dext.iso 2gm/100ml 100 ML IV SCH ×4 (00:05→23:56)
[2019-12-29 05:49] LABS: EOSINOPHILS # (AUTO) 0.2 X10'3 (0-0.9); LYMPHOCYTES # (AUTO) 0.8 X10'3 (1.1-4.8); MONOCYTES # (AUTO) 1.1 X10'3 (0-0.9); RED BLOOD COUNT 2.72 X10'6 (4.70-6.10)
[2019-12-29 05:52] LABS: BASOPHILS % (AUTO) 0.3 % (0-1); EOSINOPHILS % (AUTO) 2.8 % (0-6); HEMATOCRIT 25.9 % (42.0-52.0); HEMOGLOBIN 8.6 g/dl (14.0-17.9); LYMPHOCYTES % (AUTO) 12.8 % (21-51); MEAN CORPUSCULAR HEMOGLOBIN 31.5 PG (27.0-31.0); MEAN CORPUSCULAR HGB CONC 33.1 g/dL (33.0-36.5); MEAN CORPUSCULAR VOLUME 95.3 FL (78-98); MEAN PLATELET VOLUME 9.9 FL (7.4-10.4); MONOCYTES % (AUTO) 17.3 % (2-12); NEUTROPHILS # (AUTO) 4.4 X10'3 (1.8-7.7); NEUTROPHILS % (AUTO) 66.8 % (42-75); PLATELET COUNT 96 X10'3 (140-440); WHITE BLOOD COUNT 6.6 X10'3 (4.5-11.0)
[2019-12-29 05:57] LABS: ANION GAP 8 (8-16); BLOOD UREA NITROGEN 43 MG/DL (7-18); BUN/CREATININE RATIO 37.1 (5.4-32.0); CHLORIDE 108 MMOL/L (99-107); CREATININE 1.16 MG/DL (0.60-1.10); GLUCOSE 116 MG/DL (70-104); MAGNESIUM 1.9 MG/DL (1.5-2.4); POTASSIUM 3.5 MMOL/L (3.5-5.1); SODIUM 140 MMOL/L (135-145); TOTAL CARBON DIOXIDE 24.5 MMOL/L (24-32); eGFR 60 ML/MIN
--- NOTE | 2019-12-29 06:32 | NUR ---
Problems reprioritized. Patient report given, questions answered & plan of care reviewed with RODNEY Villagomez. patient stable at shift change
--- NOTE | 2019-12-29 06:35 | NUR ---
Patient in room PCU 3014B. I have received report from Victorino STEVENS and had the opportunity to ask questions and assume patient care.
[2019-12-29 07:08] LABS: PLATELET ESTIMATE DECREASED; POLYCHROMASIA FEW; ROULEAUX 1+; TOTAL CELLS COUNTED 100
[2019-12-29] MEDS: K and/or MAG REPLACEMENT MC SCH ×2 (08:00→20:00)
[2019-12-29] MEDS: lactose-reduced food (Ensure Enlive) - 237ml bottle PO SCH ×3 (08:00→18:00)
[2019-12-29] MEDS: polyethylene glycol 3350 17gm powd pack PO SCH (08:00)
[2019-12-29] MEDS: pantoprazole 40mg Tablet.DR PO SCH (08:36)
[2019-12-29] MEDS: tamsulosin 0.4mg capsule PO SCH ×2 (08:36→20:46)
[2019-12-29] MEDS: lactobacillus rhamnosus 10,000 MMU CELLS/CAPSULE PO SCH ×2 (08:36→20:46)
[2019-12-29] MEDS: docusate sod 100mg capsule PO SCH ×2 (08:36→20:46)
[2019-12-29] MEDS: phenazopyridine 100mg tablet PO SCH ×3 (08:36→19:40)
[2019-12-29] MEDS: carVEDilol 3.125mg tablet PO SCH ×2 (08:38→20:51)
[2019-12-29] MEDS: HYDROcodone/acetaminophen 10/325mg tab PO PRN ×2 (08:38→16:38)
[2019-12-29] MEDS: normal saline 1000ml 1,000 ML IV SCH ×2 (08:45→22:03)
[2019-12-29] MEDS: rivaroxaban 10mg tablet PO SCH (08:51)
[2019-12-29] MEDS: insulin Lispro (HumaLOG) vial - multi-dose SQ SCH ×3 (09:39→18:56)
--- NOTE | 2019-12-29 10:11 | NUR ---
paged PAGER ID: [phone] MESSAGE: Dahlia chavis [phone]. RE Mercedes Luna 2224B. FYLidia upon assessment of patient, redness on mid to lower back. Pt said it is slightly itchy. Monitoring closely as patient is receiving IV antibiotics
--- NOTE | 2019-12-29 13:27 | NUR ---
Paged Dr Khan PAGER ID: [phone] MESSAGE: Dahlia chavis [phone]. RE Kourtney Luna 3146P. Following up on patient's rash on back. Pt is requesting medication to help with itching. Pt also states this has happened before from laying down on past hospital stays
--- NOTE | 2019-12-29 14:18 | NUR ---
Initial: Pt admit w/ sepsis for unknown source possible , ALVAREZ on CKD, hx CHF EF 40-45% per MD. PO much improved past 2.5 days to 75-100% meals up from 50% fluctuating on admit. Currently meeting needs. LBM 12/26 reporting constipation and receiving routine colace but also refused miralax this AM. Will continue to monitor. Rec: 1. continue carb controlled/heart healthy diet 2. monitor for additional protein needs 3. routine bowel care 4. wt per rx Addendum: 12/29/19 at [address] Amended: Links added.
[2019-12-29] MEDS: VANCOmycin 1250MG/NS 250ml Bag 250 ML IV SCH (14:57)
--- NOTE | 2019-12-29 18:27 | NUR ---
Problems reprioritized. Patient report given, questions answered & plan of care reviewed with Victorino STEVENS.
--- NOTE | 2019-12-29 18:27 | NUR ---
Patient in room U 3013T. I have received report from RODNEY Villagomez and had the opportunity to ask questions and assume patient care. Patient denies CP, SOB, dizziness, n/v, and rated pain 5/10.
[2019-12-29] MEDS: atorvastatin 10mg tablet PO SCH (20:46)
[2019-12-29] MEDS: Terazosin 1mg capsule PO SCH (20:46)
[2019-12-29] MEDS: insulin glargine (Lantus) pen - multi-dose SQ SCH (21:56)
[2019-12-30] MEDS: normal saline 1000ml 1,000 ML IV SCH (01:51)
[2019-12-30 02:00] VITALS: BP 134/90
[2019-12-30] MEDS: HYDROcodone/acetaminophen 10/325mg tab PO PRN ×3 (02:22→20:10)
--- NOTE | 2019-12-30 06:13 | NUR ---
Problems reprioritized. Patient report given, questions answered & plan of care reviewed with RODNEY Villagomez.
--- NOTE | 2019-12-30 06:29 | NUR ---
Patient in room PCU 3014B. I have received report from Victorino STEVENS and had the opportunity to ask questions and assume patient care.
[2019-12-30 06:30] VITALS: BP 129/52
[2019-12-30] MEDS: K and/or MAG REPLACEMENT MC SCH ×4 (08:00→20:00)
[2019-12-30] MEDS: polyethylene glycol 3350 17gm powd pack PO SCH (08:00)
[2019-12-30] MEDS: docusate sod 100mg capsule PO SCH ×2 (08:00→20:00)
[2019-12-30 08:15] LABS: BASOPHILS % (AUTO) 0.2 % (0-1); EOSINOPHILS # (AUTO) 0.2 X10'3 (0-0.9); EOSINOPHILS % (AUTO) 3.2 % (0-6); HEMATOCRIT 25.9 % (42.0-52.0); HEMOGLOBIN 8.6 g/dl (14.0-17.9); LYMPHOCYTES # (AUTO) 0.8 X10'3 (1.1-4.8); LYMPHOCYTES % (AUTO) 12.7 % (21-51); MEAN CORPUSCULAR HEMOGLOBIN 31.7 PG (27.0-31.0); MEAN CORPUSCULAR HGB CONC 33.2 g/dL (33.0-36.5); MEAN CORPUSCULAR VOLUME 95.6 FL (78-98); MEAN PLATELET VOLUME 9.7 FL (7.4-10.4); MONOCYTES # (AUTO) 1.2 X10'3 (0-0.9); MONOCYTES % (AUTO) 18.2 % (2-12); NEUTROPHILS # (AUTO) 4.4 X10'3 (1.8-7.7); NEUTROPHILS % (AUTO) 65.7 % (42-75); PLATELET COUNT 128 X10'3 (140-440); RED BLOOD COUNT 2.71 X10'6 (4.70-6.10); RED CELL DISTRIBUTION WIDTH 14.1 % (11.5-14.5); WHITE BLOOD COUNT 6.7 X10'3 (4.5-11.0)
[2019-12-30 08:19] LABS: ALANINE AMINOTRANSFERASE 22 U/L (12-78); ALBUMIN/GLOBULIN RATIO 0.5 (1.1-1.5); ALKALINE PHOSPHATASE 68 IU/L (46-116); ANION GAP 7 (8-16); ASPARTATE AMINO TRANSFERASE 55 U/L (10-37); BILIRUBIN,TOTAL 0.3 MG/DL (0.1-1.0); BLOOD UREA NITROGEN 34 MG/DL (7-18); BUN/CREATININE RATIO 30.9 (5.4-32.0); CALCIUM 8.1 MG/DL (8.5-10.1); CHLORIDE 109 MMOL/L (99-107); GLUCOSE 98 MG/DL (70-104); POTASSIUM 3.9 MMOL/L (3.5-5.1); SODIUM 143 MMOL/L (135-145); TOTAL CARBON DIOXIDE 27.3 MMOL/L (24-32); TOTAL PROTEIN 5.7 G/DL (6.4-8.2); eGFR 64 ML/MIN
[2019-12-30] MEDS: cefazolin/dext.iso 2gm/100ml 100 ML IV SCH ×2 (08:28→15:18)
[2019-12-30] MEDS: carVEDilol 3.125mg tablet PO SCH ×2 (08:29→20:06)
[2019-12-30] MEDS: tamsulosin 0.4mg capsule PO SCH ×2 (08:29→20:10)
[2019-12-30] MEDS: pantoprazole 40mg Tablet.DR PO SCH (08:29)
[2019-12-30] MEDS: rivaroxaban 10mg tablet PO SCH (08:29)
[2019-12-30] MEDS: lactobacillus rhamnosus 10,000 MMU CELLS/CAPSULE PO SCH ×2 (08:29→20:10)
[2019-12-30] MEDS: phenazopyridine 100mg tablet PO SCH ×3 (08:29→17:28)
[2019-12-30] MEDS: lactose-reduced food (Ensure Enlive) - 237ml bottle PO SCH ×3 (08:30→17:29)
[2019-12-30 09:25] LABS: TOTAL CELLS COUNTED 100
[2019-12-30 09:26] LABS: PLATELET ESTIMATE DECREASED
--- NOTE | 2019-12-30 09:41 | NUR ---
Paged PAGER ID: [phone] MESSAGE: Dahlia chavis [phone]. RE Mercedes Luna 6791G. FYI that during noc shift, pt had increasing ectopy. Last episode of accelerated ideojunctional was at 0554 per television installer helper. 12 lead done EKG at 0640
--- NOTE | 2019-12-30 12:58 | NUR ---
La MOSER PAGER ID: [phone] MESSAGE: Dahlia chavis PCU. Mercedes Ramirez 5511H. ELAYNE reported by [facility] that patient just had 2 beats of 2 :1 heart block Addendum: 12/30/19 at 1316 by Dahlia Leblanc RN asked that I reach out to Cinthia Estes as cardiology did consult on this patient prior in this stay. Cinthia Estes also spoke to [facility] Cristy regarding rhythm changes over the last 24 hours. Cinthia Estes said that we can continue with patient's transfer to rehab today.
--- NOTE | 2019-12-30 13:31 | NUR ---
Spoke to Gabriela and she said that Dr Khan would like to keep patient tonight for further cardiac monitoring. Will cancel discharge, and called patient's grandson Josiah and [facility] to make aware.
[2019-12-30] MEDS: insulin Lispro (HumaLOG) vial - multi-dose SQ SCH ×2 (13:45→20:04)
[2019-12-30] MEDS ORDERED: potassium CL 10mEq/100ml bag 100 ML IV PRN (13:55)
[2019-12-30] MEDS ORDERED: potassium Cl 20 mEq SR tablet PO PRN ×2 (13:55)
[2019-12-30] MEDS ORDERED: magnesium 4gm in 100ml NS 100 ML IV PRN (13:55)
[2019-12-30] MEDS ORDERED: magnesium Cl slow-release 64mg tablet PO PRN (13:55)
[2019-12-30 15:00] VITALS: BP 115/52
[2019-12-30 18:00] VITALS: BP 118/50
--- NOTE | 2019-12-30 18:01 | NUR ---
Alerted by teletypewriter operator at 1745 that patient was having ST changes, ST depression specifically. 12 leak EKG done per protocol. Patient asymptomatic. Dr Khan paged by charge nurse that EKG being done. EKG read by ER doc, notating non stemi and that EKG was similar from 12 lead done this AM.
--- NOTE | 2019-12-30 18:32 | NUR ---
Problems reprioritized. Patient report given, questions answered & plan of care reviewed with Christine STEVENS.
--- NOTE | 2019-12-30 18:47 | NUR ---
Patient in room PCU 3024. I have received report from RODNEY Lux and had the opportunity to ask questions and assume patient care.
[2019-12-30] MEDS: Terazosin 1mg capsule PO SCH (20:14)
[2019-12-30] MEDS: atorvastatin 10mg tablet PO SCH (20:14)
[2019-12-30] MEDS: insulin glargine (Lantus) pen - multi-dose SQ SCH (22:24)
[2019-12-30 22:27] VITALS: BP 127/52
--- NOTE | 2019-12-30 22:30 | NUR ---
Upon assessment of patients lower extremities, I have noted 4+ pitting edema to is right lower leg and foot, and have also noted 3+ pitting edema to his left lower extremity. This is increased from his date of admit when I last took care of him. He was initially on a dopamine drip to keep his blood pressure at an acceptable level with his DX of septicemia and systolic HF. He was then changed to Normal saline at 70 mL/ hr at some point in his hospital stay. Due to his increased edema and absence of Lasix or a diuretic order I have paged Dr. Bernard to discuss the patient's fluid status. I have not received a returned call from the Dr, therefore have used nursing judgment to hold the normal saline at this point in time. The patient is alert and oriented, and is able to drink water. He has also been placed on flomax. When he stands, he cannot hold his urine, it continuously dribbles which is new to him since his day of admit. He did have urinary urgency on day of admit, but was not continuously dribbling urine as he is now. Patient still states 10/10 shoulder pain.
[2019-12-31] MEDS: cefazolin/dext.iso 2gm/100ml 100 ML IV SCH (00:29)
--- NOTE | 2019-12-31 01:22 | NUR ---
Patient has had 3 BM's on my shift, slightly loose with abdominal cramping. There is not a foul or strong smelling odor.
[2019-12-31 02:03] VITALS: BP 104/61
[2019-12-31] MEDS: normal saline 1000ml 1,000 ML IV SCH (02:39)
--- NOTE | 2019-12-31 03:28 | NUR ---
Patient requested I not wake him for 0200 vital signs.
[2019-12-31] MEDS: HYDROcodone/acetaminophen 10/325mg tab PO PRN ×2 (04:28→13:16)
[2019-12-31 05:04] LABS: EOSINOPHILS # (AUTO) 0.2 X10'3 (0-0.9); HEMATOCRIT 23.6 % (42.0-52.0); LYMPHOCYTES # (AUTO) 0.9 X10'3 (1.1-4.8); MEAN PLATELET VOLUME 9.3 FL (7.4-10.4)
[2019-12-31 05:08] LABS: BASOPHILS % (AUTO) 0.6 % (0-1); EOSINOPHILS % (AUTO) 3.3 % (0-6); HEMOGLOBIN 7.9 g/dl (14.0-17.9); LYMPHOCYTES % (AUTO) 13.7 % (21-51); MEAN CORPUSCULAR HEMOGLOBIN 31.7 PG (27.0-31.0); MEAN CORPUSCULAR HGB CONC 33.4 g/dL (33.0-36.5); MEAN CORPUSCULAR VOLUME 95.1 FL (78-98); MONOCYTES # (AUTO) 1.1 X10'3 (0-0.9); MONOCYTES % (AUTO) 16.7 % (2-12); NEUTROPHILS # (AUTO) 4.2 X10'3 (1.8-7.7); NEUTROPHILS % (AUTO) 65.7 % (42-75); PLATELET COUNT 147 X10'3 (140-440); RED BLOOD COUNT 2.48 X10'6 (4.70-6.10); RED CELL DISTRIBUTION WIDTH 13.8 % (11.5-14.5); WHITE BLOOD COUNT 6.3 X10'3 (4.5-11.0)
[2019-12-31 05:15] LABS: ALANINE AMINOTRANSFERASE 22 U/L (12-78); ALBUMIN/GLOBULIN RATIO 0.6 (1.1-1.5); ALKALINE PHOSPHATASE 66 IU/L (46-116); ANION GAP 5 (8-16); ASPARTATE AMINO TRANSFERASE 52 U/L (10-37); BILIRUBIN,TOTAL 0.3 MG/DL (0.1-1.0); BLOOD UREA NITROGEN 31 MG/DL (7-18); BUN/CREATININE RATIO 25.6 (5.4-32.0); CALCIUM 8.3 MG/DL (8.5-10.1); CHLORIDE 109 MMOL/L (99-107); CREATININE 1.21 MG/DL (0.60-1.10); GLUCOSE 120 MG/DL (70-104); MAGNESIUM 1.8 MG/DL (1.5-2.4); SODIUM 141 MMOL/L (135-145); TOTAL CARBON DIOXIDE 27.3 MMOL/L (24-32); TOTAL PROTEIN 5.5 G/DL (6.4-8.2); eGFR 57 ML/MIN
[2019-12-31 06:19] LABS: TOTAL CELLS COUNTED 100
--- NOTE | 2019-12-31 06:19 | NUR ---
Problems reprioritized. Patient report given, questions answered & plan of care reviewed with RODNEY Wiggins.
[2019-12-31 06:21] LABS: PLATELET ESTIMATE NORMAL
--- NOTE | 2019-12-31 06:56 | NUR ---
Patient in room PCU 3024. I have received report from Christine and had the opportunity to ask questions and assume patient care. Patient is sleeping comfortable at this time with no fluids running. Per Ana, fluids were stopped on her shift r/t increasing lower extremity edema. No dyspnea noted at this time. Will continue to monitor.
[2019-12-31 07:27] VITALS: BP 118/58
[2019-12-31] MEDS: lactose-reduced food (Ensure Enlive) - 237ml bottle PO SCH (08:00)
[2019-12-31] MEDS: docusate sod 100mg capsule PO SCH (08:00)
[2019-12-31] MEDS ORDERED: cefazolin/dext.iso 2gm/50ml 50 ML IV SCH (08:00)
[2019-12-31] MEDS: K and/or MAG REPLACEMENT MC SCH ×2 (08:00)
[2019-12-31] MEDS: polyethylene glycol 3350 17gm powd pack PO SCH (08:00)
[2019-12-31] MEDS: pantoprazole 40mg Tablet.DR PO SCH (09:01)
[2019-12-31] MEDS: rivaroxaban 10mg tablet PO SCH (09:02)
[2019-12-31] MEDS: phenazopyridine 100mg tablet PO SCH ×2 (09:02→13:16)
[2019-12-31] MEDS: carVEDilol 3.125mg tablet PO SCH (09:02)
[2019-12-31] MEDS: lactobacillus rhamnosus 10,000 MMU CELLS/CAPSULE PO SCH (09:02)
[2019-12-31] MEDS: tamsulosin 0.4mg capsule PO SCH (09:02)
--- NOTE | 2019-12-31 09:11 | NUR ---
Miralax and colace held r/t diarrhea.
[2019-12-31 11:00] VITALS: BP 132/60
--- NOTE | 2019-12-31 13:05 | NUR ---
8796B [facility] saw in notes patient to have midline. Clarified with MD. Can you please before then? Keyonna STEVENS [phone]
[2019-12-31] MEDS: insulin Lispro (HumaLOG) vial - multi-dose SQ SCH (13:25)
--- NOTE | 2019-12-31 13:38 | NUR ---
Called report to Andreina at [facility]. All questions answered. I.J. to right neck removed. Middline placed by PICC nurse.
--- NOTE | 2019-12-31 14:06 | NUR ---
5F DUAL LUMEN PLACED TO RIGHT BASILIC VEIN X'S 1 ATTEMPT WITH SUCCESS USING ULTRASOUND GUIDANCE, TIP ENDING MID AXILLARY. TROY STEVENS
--- NOTE | 2019-12-31 14:35 | NUR ---
Patient left in stable condition accompanied by Emily Cargo.
== END 2019-12-31 14:34 | DRG 871 ==
LOC: ER 14:26 → ED HOLD 17:51 → PCU 3S 20:45
PROVIDERS: ADMIT Internal Medicine; ATTEND Internal Medicine
PROC: 05HY33Z Insertion of Infusion Device into Upper Vein, Percutaneous Approach (ICD-10-PCS; principal; 2019-12-24)
PROC: B543ZZA Ultrasonography of Right Jugular Veins, Guidance (ICD-10-PCS; 2019-12-24)
PROC: 5A09357 Assistance with Respiratory Ventilation, Less than 24 Consecutive Hours, Continuous Positive Airway Pressure (ICD-10-PCS; 2019-12-24)
DX: A40.1 Sepsis due to streptococcus, group B (principal); I50.23 Acute on chronic systolic (congestive) heart failure; J96.01 Acute respiratory failure with hypoxia; E87.4 Mixed disorder of acid-base balance; I13.0 Hypertensive heart and chronic kidney disease with heart failure and stage 1 through stage 4 chronic kidney disease, or unspecified chronic kidney disease; N17.9 Acute kidney failure, unspecified; N39.0 Urinary tract infection, site not specified; R65.20 Severe sepsis without septic shock; I35.0 Nonrheumatic aortic (valve) stenosis; D64.9 Anemia, unspecified; E11.22 Type 2 diabetes mellitus with diabetic chronic kidney disease; K21.9 Gastro-esophageal reflux disease without esophagitis; E78.00 Pure hypercholesterolemia, unspecified; E78.5 Hyperlipidemia, unspecified; I25.10 Atherosclerotic heart disease of native coronary artery without angina pectoris; I48.0 Paroxysmal atrial fibrillation; B96.20 Unspecified Escherichia coli [E. coli] as the cause of diseases classified elsewhere; K59.00 Constipation, unspecified; M54.2 Cervicalgia; N18.9 Chronic kidney disease, unspecified; N40.0 Benign prostatic hyperplasia without lower urinary tract symptoms; Z79.01 Long term (current) use of anticoagulants; Z87.891 Personal history of nicotine dependence; Z95.1 Presence of aortocoronary bypass graft; Z95.2 Presence of prosthetic heart valve; Z88.8 Allergy status to other drugs, medicaments and biological substances; Z79.899 Other long term (current) drug therapy
CPT/HCPCS: 36415; 36556; 36600; 71045; 71250; 72141; 74176; 76937; 80048; 80053; 80202; 81001; 82803; 82948; 83036; 83605; 83735; 83880; 84100; 84145; 84439; 84443; 84484; 85018; 85025; 85379; 85610; 85730; 87040; 87077; 87081; 87088; 87186; 87635; 93005; 93306; 93971; 94640; 94660; 94760; 96365; 96367; 96375; 97110; 97116; 97161; 97530; 99291; G0378; J0696; J1265; J1644; J1815; J2405; J3370; J3490; J7030

== ENCOUNTER 2020-01-25 09:08 | Emergency (ER) | payer MEDICARE, OTHER ==
[~2020-01-25] VITALS: Ht 170.2 cm; Wt 88.6 kg
[~2020-01-25 09:08] MED LIST: ATOR10TA70 PO; BUME2TAB7 PO; CARV25TA2 PO; GLIP2.5T3 PO; OMEP-50 PO; RIVA15TA PO; SACU1TAB4 PO; TERA1CAP4 PO
[2020-01-25 10:09] VITALS: BP 127/72
== END 2020-01-25 10:10 | disposition home or self-care (01) ==
LOC: ER 09:10
DX: I49.9 Cardiac arrhythmia, unspecified (principal); I25.10 Atherosclerotic heart disease of native coronary artery without angina pectoris; I50.9 Heart failure, unspecified; E78.00 Pure hypercholesterolemia, unspecified; I11.0 Hypertensive heart disease with heart failure; Z98.890 Other specified postprocedural states; Z88.8 Allergy status to other drugs, medicaments and biological substances; Z79.899 Other long term (current) drug therapy
CPT/HCPCS: 93005; 99283

== ENCOUNTER 2020-03-04 10:02 | Day surgery (SDC) | payer MEDICARE, OTHER ==
[2020-03-03 15:04] LABS: BASOPHILS # (AUTO) 0.1 X10'3 (0-0.2); EOSINOPHILS # (AUTO) 0.3 X10'3 (0-0.9); EOSINOPHILS % (AUTO) 5.2 % (0-6); HEMATOCRIT 30.6 % (42.0-52.0); HEMOGLOBIN 10.2 g/dl (14.0-17.9); LYMPHOCYTES # (AUTO) 1.5 X10'3 (1.1-4.8); LYMPHOCYTES % (AUTO) 30.2 % (21-51); MEAN CORPUSCULAR HEMOGLOBIN 31.9 PG (27.0-31.0); MEAN CORPUSCULAR HGB CONC 33.1 g/dL (33.0-36.5); MEAN CORPUSCULAR VOLUME 96.4 FL (78-98); MEAN PLATELET VOLUME 7.9 FL (7.4-10.4); MONOCYTES # (AUTO) 0.9 X10'3 (0-0.9); MONOCYTES % (AUTO) 19.2 % (2-12); NEUTROPHILS # (AUTO) 2.2 X10'3 (1.8-7.7); NEUTROPHILS % (AUTO) 44.4 % (42-75); PLATELET COUNT 192 X10'3 (140-440); RED BLOOD COUNT 3.18 X10'6 (4.70-6.10); RED CELL DISTRIBUTION WIDTH 14.2 % (11.5-14.5); WHITE BLOOD COUNT 4.9 X10'3 (4.5-11.0)
[2020-03-03 15:11] LABS: ALBUMIN 3.2 G/DL (3.4-5.0); ANION GAP 9 (8-16); BLOOD UREA NITROGEN 30 MG/DL (7-18); BUN/CREATININE RATIO 20.4 (5.4-32.0); CALCIUM 8.5 MG/DL (8.5-10.1); CHLORIDE 107 MMOL/L (99-107); CREATININE 1.47 MG/DL (0.60-1.10); GLUCOSE 128 MG/DL (70-104); POTASSIUM 4.5 MMOL/L (3.5-5.1); SODIUM 139 MMOL/L (135-145); TOTAL CARBON DIOXIDE 23.1 MMOL/L (24-32); eGFR 46 ML/MIN
[2020-03-03 15:13] LABS: PARTIAL THROMBOPLASTIN TIME 28 SECONDS (22-32)
[~2020-03-04] VITALS: Ht 167.6 cm; Wt 90.6 kg
[2020-03-04] VITALS (9 sets, daily range): BP systolic 101–133; BP diastolic 46–69
[2020-03-04] MEDS ORDERED: diphenhydrAMINE 25mg capsule PO PRN (10:25)
[2020-03-04] MEDS ORDERED: LORazepam 0.5 MG tablet PO PRN (10:25)
[2020-03-04] MEDS ORDERED: normal saline 1,000 ML IV SCH (10:25)
[2020-03-04] MEDS ORDERED: ASPI-1265 PO (10:34)
[2020-03-04] MEDS ORDERED: FERR325T28 PO (10:35)
[2020-03-04] MEDS ORDERED: FLAX10007 PO (10:36)
[2020-03-04] MEDS ORDERED: acetylcysteine 200 MG/ml 4ml vial PO PRN (11:20)
[2020-03-04] MEDS ORDERED: sodium bicarbonate (8.4%) inj. 150 ML in dextrose 5%-water 1,000 ML IV ONE (11:20)
[2020-03-04] MEDS ORDERED: fentaNYL/PF 50MCG/1 ML 2ML syringe ONE (15:00)
[2020-03-04] MEDS ORDERED: iohexol 350 MG/ML 50ML vial IV ONE ×2 (15:00→15:55)
[2020-03-04] MEDS ORDERED: heparin 1,000unit/ml 10ml vial 10 ML ONE (15:00)
[2020-03-04] MEDS ORDERED: midazolam 2 mg/2 ml injection ONE (15:00)
[2020-03-04] MEDS ORDERED: iohexol 350MG/ML 100ml bottle IV ONE (15:00)
[2020-03-04] MEDS ORDERED: LIDOcaine 1% (10mg/ml)w/preservative injection 20ml MDV ONE (15:00)
[2020-03-04] MEDS ORDERED: nitroGLYCERIN-Tridil 50MG/D5W 250 ML IV ONE (15:03)
[2020-03-04 19:31] LABS: ISTAT HGB ART 9.2 g/dl (14.0-18.0); ISTAT Hct ART 27 %PCV (42-52); ISTAT O2 SATURATION ARTERIAL 98 % (95-98); ISTAT SOURCE ART
== END 2020-03-04 20:45 | disposition home or self-care (01) ==
LOC: SSTAY O 10:02
PROVIDERS: ATTEND Internal Medicine Cardiovascular Disease
DX: R94.39 Abnormal result of other cardiovascular function study (principal); R06.02 Shortness of breath; I25.10 Atherosclerotic heart disease of native coronary artery without angina pectoris; I25.82 Chronic total occlusion of coronary artery; E78.5 Hyperlipidemia, unspecified; E11.22 Type 2 diabetes mellitus with diabetic chronic kidney disease; I13.0 Hypertensive heart and chronic kidney disease with heart failure and stage 1 through stage 4 chronic kidney disease, or unspecified chronic kidney disease; N18.9 Chronic kidney disease, unspecified; I50.20 Unspecified systolic (congestive) heart failure; I35.0 Nonrheumatic aortic (valve) stenosis; I48.0 Paroxysmal atrial fibrillation; Z88.8 Allergy status to other drugs, medicaments and biological substances; Z87.891 Personal history of nicotine dependence; Z95.2 Presence of prosthetic heart valve; Z95.1 Presence of aortocoronary bypass graft; Z79.899 Other long term (current) drug therapy
CPT/HCPCS: 36415; 76937; 80048; 82803; 82948; 85014; 85025; 85610; 85730; 93005; 93461; 93567; 99152; 99153; C1760; C1769; J1644; J2001; J2250; J3010; J7030; Q0163; Q9967; A4620; A6258; C1751; J3490

== ENCOUNTER 2022-02-04 13:26 | Inpatient (IN) | payer MEDICARE, OTHER ==
[~2022-02-04] VITALS: Ht 167.6 cm; Wt 91.6 kg
[~2022-02-04 13:26] MED LIST changes: +ASPI-1265 PO; +FERR325T28 PO; +FERR325T32 PO; +FLAX10007 PO; -OMEP-50 PO; +OMEP20CA16 PO; -SACU1TAB4 PO; -TERA1CAP4 PO
[2022-02-04 14:18] LABS: BASOPHILS % (AUTO) 0.4 % (0-1); EOSINOPHILS # (AUTO) 0.1 X10'3 (0-0.9); EOSINOPHILS % (AUTO) 1.4 % (0-6); HEMATOCRIT 30.1 % (42.0-52.0); HEMOGLOBIN 10.1 g/dl (14.0-17.9); LYMPHOCYTES # (AUTO) 1.4 X10'3 (1.1-4.8); LYMPHOCYTES % (AUTO) 32.2 % (21-51); MEAN CORPUSCULAR HEMOGLOBIN 33.6 PG (27.0-31.0); MEAN CORPUSCULAR HGB CONC 33.6 g/dL (33.0-36.5); MONOCYTES # (AUTO) 1.2 X10'3 (0-0.9); MONOCYTES % (AUTO) 28.4 % (2-12); NEUTROPHILS # (AUTO) 1.6 X10'3 (1.8-7.7); NEUTROPHILS % (AUTO) 37.6 % (42-75); PLATELET COUNT 148 X10'3 (140-440); RED CELL DISTRIBUTION WIDTH 14.2 % (11.5-14.5); WHITE BLOOD COUNT 4.3 X10'3 (4.5-11.0)
[2022-02-04 14:28] LABS: ALANINE AMINOTRANSFERASE 17 U/L (12-78); ALBUMIN 3.4 G/DL (3.4-5.0); ALBUMIN/GLOBULIN RATIO 0.9 (1.1-1.5); ALKALINE PHOSPHATASE 46 IU/L (46-116); ANION GAP 10 (8-16); ASPARTATE AMINO TRANSFERASE 6 U/L (10-37); BILIRUBIN,TOTAL 0.5 MG/DL (0.1-1.0); BLOOD UREA NITROGEN 52 MG/DL (7-18); CALCIUM 8.7 MG/DL (8.5-10.1); CHLORIDE 106 MMOL/L (99-107); CREATININE 1.86 MG/DL (0.60-1.10); GLUCOSE 150 MG/DL (70-104); POTASSIUM 4.2 MMOL/L (3.5-5.1); SODIUM 143 MMOL/L (135-145); TOTAL CARBON DIOXIDE 26.7 MMOL/L (24-32); TOTAL PROTEIN 7.3 G/DL (6.4-8.2); eGFR 35 ML/MIN
[2022-02-04 14:38] LABS: PLATELET ESTIMATE NORMAL; TOTAL CELLS COUNTED 100
[2022-02-04 15:17] LABS: MAGNESIUM 2.4 MG/DL (1.5-2.4)
[2022-02-04] MEDS ORDERED: carVEDilol 3.125mg tablet PO STA (15:17)
[2022-02-04] MEDS ORDERED: SACU1TAB7 PO (15:32)
[2022-02-04] MEDS ORDERED: CARV12.549 PO (15:32)
[2022-02-04] MEDS ORDERED: MAGN400T56 PO (15:32)
[2022-02-04] MEDS ORDERED: RIVA15TA PO (15:32)
[2022-02-04] MEDS ORDERED: BUME1TAB8 PO (15:32)
[2022-02-04] MEDS ORDERED: ASCO-482 PO (15:32)
[2022-02-04] MEDS ORDERED: DAPA10TA PO (15:32)
[2022-02-04] MEDS ORDERED: ASCO-321 PO (15:35)
[2022-02-04] MEDS ORDERED: CARV6.253 PO (15:40)
--- NOTE | 2022-02-04 15:47 | NUR ---
CONFIRMED CARVEDILOL DOSE WITH DR VILLALOBOS. AWARE OF SBP OF 100. OKAYED MEDICATION DOSE.
[2022-02-04] MEDS ORDERED: amiodarone/D5 360MG/200ML BAG 200 ML IV ONE (16:05)
[2022-02-04] MEDS ORDERED: heparin 10,000 units/1 ML INJ IV ONE (16:05)
[2022-02-04] MEDS ORDERED: digoxin 250mcg/ml 2ml ampule IV ONE (16:05)
[2022-02-04] MEDS ORDERED: amiodarone 150mg/dext, iso-os 100 ML IV ONE (16:05)
[2022-02-04] MEDS ORDERED: morphine 2 MG/ML inj. syringe IV PRN (16:50)
[2022-02-04] MEDS ORDERED: POTASSIUM BICARB 20meq eff tab 20 MEQ TABLET.EFF PO PRN ×2 (16:50)
[2022-02-04] MEDS ORDERED: magnesium 2GM in 50ml NS 50 ML IV PRN (16:50)
[2022-02-04] MEDS ORDERED: acetaminophen 325mg tablet PO PRN (16:50)
[2022-02-04] MEDS ORDERED: ondansetron/PF 4mg/2ml inj IV PRN (16:50)
[2022-02-04] MEDS ORDERED: magnesium 4gm in 100ml NS 100 ML IV PRN (16:50)
[2022-02-04] MEDS ORDERED: magnesium Cl slow-release 64mg tablet PO PRN (16:50)
[2022-02-04] MEDS ORDERED: potassium CL 10mEq/100ml bag 100 ML IV PRN (16:50)
[2022-02-04 17:11] LABS: BASOPHILS % (AUTO) 0.5 % (0-1); EOSINOPHILS # (AUTO) 0.1 X10'3 (0-0.9); EOSINOPHILS % (AUTO) 1.6 % (0-6); HEMATOCRIT 29.2 % (42.0-52.0); HEMOGLOBIN 9.7 g/dl (14.0-17.9); LYMPHOCYTES # (AUTO) 1.2 X10'3 (1.1-4.8); LYMPHOCYTES % (AUTO) 29.6 % (21-51); MEAN CORPUSCULAR HEMOGLOBIN 33.1 PG (27.0-31.0); MEAN CORPUSCULAR HGB CONC 33.2 g/dL (33.0-36.5); MEAN CORPUSCULAR VOLUME 99.8 FL (78-98); MONOCYTES # (AUTO) 1.1 X10'3 (0-0.9); MONOCYTES % (AUTO) 26.2 % (2-12); NEUTROPHILS # (AUTO) 1.8 X10'3 (1.8-7.7); NEUTROPHILS % (AUTO) 42.1 % (42-75); PLATELET COUNT 140 X10'3 (140-440); RED BLOOD COUNT 2.92 X10'6 (4.70-6.10); RED CELL DISTRIBUTION WIDTH 14.4 % (11.5-14.5); WHITE BLOOD COUNT 4.2 X10'3 (4.5-11.0)
[2022-02-04 17:20] LABS: APTT 31 SECONDS (22-32)
[2022-02-04 17:25] LABS: POTASSIUM 4.2 MMOL/L (3.5-5.1)
[2022-02-04] MEDS: heparin 25,000 UNIT/250ml bag 250 ML IV SCH (17:35)
[2022-02-04 20:00] VITALS: BP 123/69
[2022-02-04] MEDS: K and/or MAG REPLACEMENT MC SCH (20:00)
[2022-02-04 20:30] VITALS: BP 103/73
[2022-02-04] MEDS: carvedilol 6.25mg tablet PO SCH (21:03)
[2022-02-04 21:30] VITALS: BP 101/52
[2022-02-04 22:00] VITALS: BP 102/61
[2022-02-04 22:15] VITALS: BP 102/61
[2022-02-04 23:30] VITALS: BP 123/69
[2022-02-05] VITALS (26 sets, daily range): BP systolic 81–125; BP diastolic 48–72
[2022-02-05] MEDS: DOBUTamine-DoBUTrex 500mg/D5W 250 ML IV SCH (01:25)
[2022-02-05 06:58] LABS: ALBUMIN 2.9 G/DL (3.4-5.0); ANION GAP 11 (8-16); BLOOD UREA NITROGEN 41 MG/DL (7-18); BUN/CREATININE RATIO 26.8 (5.4-32.0); CALCIUM 8.3 MG/DL (8.5-10.1); CHLORIDE 106 MMOL/L (99-107); CREATININE 1.53 MG/DL (0.60-1.10); GLUCOSE 126 MG/DL (70-104); MAGNESIUM 2.4 MG/DL (1.5-2.4); POTASSIUM 3.9 MMOL/L (3.5-5.1); SODIUM 144 MMOL/L (135-145); TOTAL CARBON DIOXIDE 27.1 MMOL/L (24-32); eGFR 43 ML/MIN
[2022-02-05 06:59] LABS: BASOPHILS % (AUTO) 0.4 % (0-1); EOSINOPHILS # (AUTO) 0.1 X10'3 (0-0.9); EOSINOPHILS % (AUTO) 1.5 % (0-6); HEMATOCRIT 28.6 % (42.0-52.0); HEMOGLOBIN 9.6 g/dl (14.0-17.9); LYMPHOCYTES # (AUTO) 1.1 X10'3 (1.1-4.8); LYMPHOCYTES % (AUTO) 24.4 % (21-51); MEAN CORPUSCULAR HEMOGLOBIN 33.4 PG (27.0-31.0); MEAN CORPUSCULAR HGB CONC 33.6 g/dL (33.0-36.5); MEAN CORPUSCULAR VOLUME 99.4 FL (78-98); MEAN PLATELET VOLUME 8.8 FL (7.4-10.4); MONOCYTES # (AUTO) 1.4 X10'3 (0-0.9); MONOCYTES % (AUTO) 31.2 % (2-12); NEUTROPHILS # (AUTO) 1.9 X10'3 (1.8-7.7); NEUTROPHILS % (AUTO) 42.5 % (42-75); PLATELET COUNT 142 X10'3 (140-440); RED BLOOD COUNT 2.87 X10'6 (4.70-6.10); RED CELL DISTRIBUTION WIDTH 13.9 % (11.5-14.5); WHITE BLOOD COUNT 4.4 X10'3 (4.5-11.0)
[2022-02-05] MEDS ORDERED: rivaroxaban 15mg tablet PO SCH (08:00)
[2022-02-05] MEDS: K and/or MAG REPLACEMENT MC SCH ×2 (08:00→20:00)
[2022-02-05] MEDS: carvedilol 6.25mg tablet PO SCH ×3 (08:00→20:00)
[2022-02-05] MEDS ORDERED: bumetanide 1mg tablet PO SCH (08:00)
--- NOTE | 2022-02-05 08:23 | NUR ---
PAGER ID: [phone] MESSAGE: Room: 3024A: Joshua Luna: I'm holding the pt's coreg and Xarelto this AM because the pt is on a heparin and dobutamine drip. RODNEY Puente [phone]
[2022-02-05] MEDS: ascorbic acid 500mg tablet PO SCH (08:33)
--- NOTE | 2022-02-05 08:39 | NUR ---
PAGER ID: [phone] MESSAGE: Room: 3024A: Joshua Luna: This pt has a history of diabetes mellitus 2. Their AM blood sugar was 132. They currently have no orders for accuchecks or the hyper/hypoglycemia protocol. RODNEY Puente [id number]
[2022-02-05] MEDS ORDERED: PERFLUTREN PROTEIN-A MICROSPHR (Optison) 0.22 MG/ML 3ML VIAL IV ONE (09:50)
[2022-02-05] MEDS ORDERED: amiodarone 150mg/dext, iso-os 100 ML IV ONE (13:15)
[2022-02-05] MEDS: heparin 10,000 units/1 ML INJ IV PRN (14:35)
[2022-02-05] MEDS: amiodarone/D5 360MG/200ML BAG 200 ML IV SCH ×2 (15:19→22:01)
--- NOTE | 2022-02-05 18:00 | NUR ---
Patient in room PCU 3024. I have received report from Cindi STEVENS and had the opportunity to ask questions and assume patient care.
[2022-02-05] MEDS: heparin 25,000 UNIT/250ml bag 250 ML IV SCH (22:44)
[2022-02-06] VITALS (8 sets, daily range): BP systolic 87–132; BP diastolic 53–81
[2022-02-06] MEDS: amiodarone/D5 360MG/200ML BAG 200 ML IV SCH ×4 (01:23→23:26)
[2022-02-06 06:12] LABS: BASOPHILS % (AUTO) 0.5 % (0-1); EOSINOPHILS # (AUTO) 0.1 X10'3 (0-0.9); HEMOGLOBIN 9.6 g/dl (14.0-17.9); LYMPHOCYTES # (AUTO) 1.1 X10'3 (1.1-4.8); MEAN PLATELET VOLUME 9.1 FL (7.4-10.4); NEUTROPHILS # (AUTO) 1.4 X10'3 (1.8-7.7); RED BLOOD COUNT 2.88 X10'6 (4.70-6.10)
[2022-02-06 06:14] LABS: EOSINOPHILS % (AUTO) 1.6 % (0-6); HEMATOCRIT 28.8 % (42.0-52.0); LYMPHOCYTES % (AUTO) 29.4 % (21-51); MEAN CORPUSCULAR HEMOGLOBIN 33.4 PG (27.0-31.0); MEAN CORPUSCULAR HGB CONC 33.3 g/dL (33.0-36.5); MEAN CORPUSCULAR VOLUME 100.2 FL (78-98); MONOCYTES # (AUTO) 1.1 X10'3 (0-0.9); MONOCYTES % (AUTO) 30.7 % (2-12); NEUTROPHILS % (AUTO) 37.8 % (42-75); PLATELET COUNT 140 X10'3 (140-440); RED CELL DISTRIBUTION WIDTH 14.2 % (11.5-14.5); WHITE BLOOD COUNT 3.7 X10'3 (4.5-11.0)
[2022-02-06 06:24] LABS: ALBUMIN 2.7 G/DL (3.4-5.0); ANION GAP 12 (8-16); BLOOD UREA NITROGEN 37 MG/DL (7-18); BUN/CREATININE RATIO 23.3 (5.4-32.0); CALCIUM 8.2 MG/DL (8.5-10.1); CHLORIDE 105 MMOL/L (99-107); CREATININE 1.59 MG/DL (0.60-1.10); GLUCOSE 139 MG/DL (70-104); MAGNESIUM 2.3 MG/DL (1.5-2.4); SODIUM 142 MMOL/L (135-145); TOTAL CARBON DIOXIDE 25.4 MMOL/L (24-32); eGFR 41 ML/MIN
--- NOTE | 2022-02-06 06:48 | NUR ---
Problems reprioritized. Patient report given, questions answered & plan of care reviewed with Marcelina STEVENS.
--- NOTE | 2022-02-06 07:24 | NUR ---
Patient in room PCU 3024. I have received report from Katherine STEVENS and had the opportunity to ask questions and assume patient care.
[2022-02-06] MEDS: K and/or MAG REPLACEMENT MC SCH ×2 (08:00→20:00)
[2022-02-06] MEDS: ascorbic acid 500mg tablet PO SCH (09:49)
[2022-02-06] MEDS: carvedilol 6.25mg tablet PO SCH ×2 (09:50→20:00)
--- NOTE | 2022-02-06 12:28 | NUR ---
Telephone order from Dr Rojas to increase Dobutamine drip to 5 mcg/kg/min.
[2022-02-06] MEDS: heparin 10,000 units/1 ML INJ IV PRN (13:27)
--- NOTE | 2022-02-06 14:20 | NUR ---
Echo med non-admined as echo is resulted,
[2022-02-06] MEDS: bumetanide 0.25mg/ml 4ml vial IV SCH (14:37)
[2022-02-06] MEDS ORDERED: ondansetron 4mg rapidly disintigrating tab PO PRN (16:12)
[2022-02-06] MEDS: DOBUTamine-DoBUTrex 500mg/D5W 250 ML IV SCH (17:16)
--- NOTE | 2022-02-06 18:00 | NUR ---
Patient in room PCU 3024. I have received report from Travis STEVENS and had the opportunity to ask questions and assume patient care.
--- NOTE | 2022-02-06 18:20 | NUR ---
Patient in room PCU 3024. I have received report from Marcelina STEVENS and had the opportunity to ask questions and assume patient care.
--- NOTE | 2022-02-06 18:58 | NUR ---
Problems reprioritized. Patient report given, questions answered & plan of care reviewed with Katherine STEVENS.
[2022-02-06] MEDS: heparin 25,000 UNIT/250ml bag 250 ML IV SCH (20:49)
[2022-02-06] MEDS: temazepam 15mg capsule PO PRN (23:14)
[2022-02-07] VITALS: BP 78/49
[2022-02-07] MEDS: amiodarone/D5 360MG/200ML BAG 200 ML IV SCH ×2 (01:39→07:43)
[2022-02-07 02:00] VITALS: BP 130/86
[2022-02-07 04:00] VITALS: BP 94/57
[2022-02-07] MEDS: heparin 10,000 units/1 ML INJ IV PRN (05:27)
[2022-02-07] MEDS: heparin 25,000 UNIT/250ml bag 250 ML IV SCH ×2 (05:31→09:30)
--- NOTE | 2022-02-07 06:00 | NUR ---
Problems reprioritized. Patient report given, questions answered & plan of care reviewed with Angelina STEVENS.
[2022-02-07 06:25] LABS: BASOPHILS % (AUTO) 0.5 % (0-1); EOSINOPHILS # (AUTO) 0.1 X10'3 (0-0.9); NEUTROPHILS # (AUTO) 1.8 X10'3 (1.8-7.7)
[2022-02-07 06:28] LABS: HEMATOCRIT 26.6 % (42.0-52.0); HEMOGLOBIN 9.1 g/dl (14.0-17.9); LYMPHOCYTES # (AUTO) 0.7 X10'3 (1.1-4.8); LYMPHOCYTES % (AUTO) 18.7 % (21-51); MEAN CORPUSCULAR HEMOGLOBIN 33.9 PG (27.0-31.0); MEAN CORPUSCULAR HGB CONC 34.3 g/dL (33.0-36.5); MEAN CORPUSCULAR VOLUME 98.8 FL (78-98); MEAN PLATELET VOLUME 8.8 FL (7.4-10.4); MONOCYTES # (AUTO) 1.4 X10'3 (0-0.9); NEUTROPHILS % (AUTO) 44.8 % (42-75); PLATELET COUNT 134 X10'3 (140-440); RED BLOOD COUNT 2.69 X10'6 (4.70-6.10); RED CELL DISTRIBUTION WIDTH 14.3 % (11.5-14.5)
[2022-02-07 06:38] LABS: ALBUMIN 2.7 G/DL (3.4-5.0); ANION GAP 9 (8-16); BLOOD UREA NITROGEN 40 MG/DL (7-18); BUN/CREATININE RATIO 24.2 (5.4-32.0); CALCIUM 8.1 MG/DL (8.5-10.1); CHLORIDE 105 MMOL/L (99-107); CREATININE 1.65 MG/DL (0.60-1.10); GLUCOSE 135 MG/DL (70-104); MAGNESIUM 2.1 MG/DL (1.5-2.4); POTASSIUM 3.7 MMOL/L (3.5-5.1); SODIUM 140 MMOL/L (135-145); TOTAL CARBON DIOXIDE 26.1 MMOL/L (24-32); eGFR 40 ML/MIN
--- NOTE | 2022-02-07 06:52 | NUR ---
Patient in room PCU 3024A. I have received report from Katherine STEVENS and had the opportunity to ask questions and assume patient care. Patient resting in bed in no acute distress.
[2022-02-07 07:00] VITALS: BP 108/62
[2022-02-07 07:20] LABS: PLATELET ESTIMATE DECREASED; TOTAL CELLS COUNTED 100
[2022-02-07] MEDS: K and/or MAG REPLACEMENT MC SCH ×2 (08:00→20:00)
[2022-02-07] MEDS: ascorbic acid 500mg tablet PO SCH (09:16)
[2022-02-07] MEDS: bumetanide 0.25mg/ml 4ml vial IV SCH ×2 (09:16→12:17)
[2022-02-07] MEDS: ferrous sulfate 325mg tablet PO SCH (09:16)
[2022-02-07] MEDS: carvedilol 6.25mg tablet PO SCH ×2 (09:16→21:17)
[2022-02-07] MEDS: DOBUTamine-DoBUTrex 500mg/D5W 250 ML IV SCH (10:34)
[2022-02-07 11:00] VITALS: BP 118/55
[2022-02-07] MEDS ORDERED: bumetanide 0.25mg/ml 4ml vial IV ONE (11:55)
[2022-02-07] MEDS ORDERED: amiodarone 200mg tablet PO ONE (14:10)
[2022-02-07 15:00] VITALS: BP 111/64
--- NOTE | 2022-02-07 18:33 | NUR ---
Problems reprioritized. Patient report given, questions answered & plan of care reviewed with Regi STEVENS. Patient resting in bed in no acute distress.
[2022-02-07] MEDS: amiodarone 200mg tablet PO SCH (20:00)
[2022-02-07] MEDS: rivaroxaban 15mg tablet PO SCH (21:18)
[2022-02-08] VITALS (28 sets, daily range): BP systolic 91–138; BP diastolic 51–81
--- NOTE | 2022-02-08 01:03 | NUR ---
Patient in room PCU 3024. I have received report from RODNEY Deluna and had the opportunity to ask questions and assume patient care. Patient is on a Dobutamine gtt for low ER 30-35% and will be cardioverted by Dr. Rojas in the morning. He is awake and appropriate at this time, sitting up using the urinal.
[2022-02-08] MEDS: DOBUTamine-DoBUTrex 500mg/D5W 250 ML IV SCH ×2 (03:52→15:12)
[2022-02-08] MEDS: temazepam 15mg capsule PO PRN (03:55)
--- NOTE | 2022-02-08 06:12 | NUR ---
Problems reprioritized. Patient report given, questions answered & plan of care reviewed with RODNEY Alfaro.
[2022-02-08 07:28] LABS: BASOPHILS % (AUTO) 0.5 % (0-1); EOSINOPHILS # (AUTO) 0.1 X10'3 (0-0.9); EOSINOPHILS % (AUTO) 2.6 % (0-6); HEMATOCRIT 29.2 % (42.0-52.0); HEMOGLOBIN 9.8 g/dl (14.0-17.9); LYMPHOCYTES # (AUTO) 0.8 X10'3 (1.1-4.8); LYMPHOCYTES % (AUTO) 19.8 % (21-51); MEAN CORPUSCULAR HEMOGLOBIN 33.4 PG (27.0-31.0); MEAN CORPUSCULAR HGB CONC 33.7 g/dL (33.0-36.5); MEAN PLATELET VOLUME 8.1 FL (7.4-10.4); MONOCYTES # (AUTO) 1.3 X10'3 (0-0.9); MONOCYTES % (AUTO) 32.1 % (2-12); NEUTROPHILS # (AUTO) 1.8 X10'3 (1.8-7.7); PLATELET COUNT 144 X10'3 (140-440); RED BLOOD COUNT 2.95 X10'6 (4.70-6.10); RED CELL DISTRIBUTION WIDTH 13.9 % (11.5-14.5); WHITE BLOOD COUNT 4.1 X10'3 (4.5-11.0)
[2022-02-08 07:33] LABS: ALBUMIN 2.9 G/DL (3.4-5.0); ANION GAP 11 (8-16); BLOOD UREA NITROGEN 38 MG/DL (7-18); BUN/CREATININE RATIO 19.8 (5.4-32.0); CALCIUM 8.4 MG/DL (8.5-10.1); CHLORIDE 103 MMOL/L (99-107); CREATININE 1.92 MG/DL (0.60-1.10); GLUCOSE 122 MG/DL (70-104); POTASSIUM 4.2 MMOL/L (3.5-5.1); SODIUM 139 MMOL/L (135-145); TOTAL CARBON DIOXIDE 25.3 MMOL/L (24-32); eGFR 33 ML/MIN
[2022-02-08] MEDS: ascorbic acid 500mg tablet PO SCH (07:40)
[2022-02-08] MEDS: amiodarone 200mg tablet PO SCH (07:40)
[2022-02-08] MEDS: bumetanide 0.25mg/ml 4ml vial IV SCH (07:40)
[2022-02-08] MEDS: carvedilol 6.25mg tablet PO SCH ×2 (07:40→20:35)
[2022-02-08 07:59] LABS: PLATELET ESTIMATE NORMAL; TOTAL CELLS COUNTED 100
[2022-02-08] MEDS: K and/or MAG REPLACEMENT MC SCH ×2 (08:00→20:00)
[2022-02-08] MEDS ORDERED: MIDAZolam 1mg/ml 10ml vial IV ONE (08:15)
[2022-02-08] MEDS ORDERED: morphine 10mg/ml inj. IV ONE (08:15)
[2022-02-08 09:10] LABS: CLARITY,URINE CLEAR (Clear); GLUCOSE, URINE NEGATIVE (Neg); KETONES,URINE NEGATIVE (Neg); LEUKOCYTE ESTERASE ,URINE NEGATIVE (Neg); NITRITES, URINE NEGATIVE (Neg); OCCULT BLOOD,URINE NEGATIVE (Neg); PROTEIN,URINE NEGATIVE (Neg); UROBILINOGEN,URINE 0.2 E.U/dL (0.2-1.0)
[2022-02-08 09:17] LABS: COLOR,URINE STRAW (Yellow); UA COLLECTION TYPE CLN CATCH MIDSTREAM
[2022-02-08] MEDS ORDERED: amiodarone 150mg/dext, iso-os 100 ML IV ONE ×2 (09:49→09:56)
[2022-02-08] MEDS ORDERED: amiodarone 50MG/ML inj IV ONE (09:50)
--- NOTE | 2022-02-08 11:53 | NUR ---
Initial: Pt admitted w/ Afib w/ RVR, CHF, and CAD per EMR. Currently on Heart Healthy diet w/ 1.5L fluid restriction per MD, has good PO intake at mostly 75-100% of meals meeting needs at this time. LBM 02/07. No nutrition intervention implemented at this time, will continue to monitor. Recs: 1. Continue Heart Healthy diet w/ 1.5L fluid restriction per MD 2. Bowel care per rx 3. Weekly wts Addendum: 02/08/22 at [address] Amended: Links added.
--- NOTE | 2022-02-08 18:26 | NUR ---
Problems reprioritized. Patient report given, questions answered & plan of care reviewed with Regi STEVENS. Patient resting in bed in no acute distress.
[2022-02-08] MEDS: rivaroxaban 15mg tablet PO SCH (20:33)
[2022-02-09] VITALS (7 sets, daily range): BP systolic 107–125; BP diastolic 60–72
[2022-02-09] MEDS: DOBUTamine-DoBUTrex 500mg/D5W 250 ML IV SCH (00:57)
[2022-02-09 06:41] LABS: BASOPHILS % (AUTO) 0.2 % (0-1); EOSINOPHILS # (AUTO) 0.1 X10'3 (0-0.9)
[2022-02-09 06:43] LABS: EOSINOPHILS % (AUTO) 2.1 % (0-6); HEMATOCRIT 29.9 % (42.0-52.0); HEMOGLOBIN 10.1 g/dl (14.0-17.9); LYMPHOCYTES # (AUTO) 0.7 X10'3 (1.1-4.8); LYMPHOCYTES % (AUTO) 13.5 % (21-51); MEAN CORPUSCULAR HEMOGLOBIN 33.7 PG (27.0-31.0); MEAN CORPUSCULAR HGB CONC 33.9 g/dL (33.0-36.5); MEAN CORPUSCULAR VOLUME 99.6 FL (78-98); MEAN PLATELET VOLUME 7.9 FL (7.4-10.4); MONOCYTES # (AUTO) 1.6 X10'3 (0-0.9); NEUTROPHILS # (AUTO) 2.7 X10'3 (1.8-7.7); NEUTROPHILS % (AUTO) 52.2 % (42-75); PLATELET COUNT 158 X10'3 (140-440); RED CELL DISTRIBUTION WIDTH 13.9 % (11.5-14.5); WHITE BLOOD COUNT 5.1 X10'3 (4.5-11.0)
[2022-02-09 06:55] LABS: ALBUMIN 3.1 G/DL (3.4-5.0); ANION GAP 11 (8-16); BLOOD UREA NITROGEN 43 MG/DL (7-18); CALCIUM 8.6 MG/DL (8.5-10.1); CHLORIDE 102 MMOL/L (99-107); CREATININE 1.79 MG/DL (0.60-1.10); GLUCOSE 134 MG/DL (70-104); POTASSIUM 4.2 MMOL/L (3.5-5.1); SODIUM 139 MMOL/L (135-145); TOTAL CARBON DIOXIDE 26.2 MMOL/L (24-32); eGFR 36 ML/MIN
[2022-02-09 07:21] LABS: TOTAL CELLS COUNTED 100
[2022-02-09 07:24] LABS: PLATELET ESTIMATE NORMAL
--- NOTE | 2022-02-09 07:24 | NUR ---
Patient in room PCU 3024. I have received report from RODNEY BRADLEY, and had the opportunity to ask questions and assume patient care.
[2022-02-09] MEDS ORDERED: DOBUTamine-DoBUTrex 500mg/D5W 250 ML IV SCH (07:55)
[2022-02-09] MEDS: bumetanide 0.25mg/ml 4ml vial IV SCH (08:17)
[2022-02-09] MEDS: carvedilol 6.25mg tablet PO SCH (08:21)
[2022-02-09] MEDS: ferrous sulfate 325mg tablet PO SCH (08:22)
[2022-02-09] MEDS: ascorbic acid 500mg tablet PO SCH (08:22)
[2022-02-09] MEDS: K and/or MAG REPLACEMENT MC SCH (08:26)
--- NOTE | 2022-02-09 10:02 | NUR ---
PAGE SENT PAGER ID: [phone] MESSAGE: [id number], DEUCE BRADY, PT HAD NEG UA 02/08, DID YOU STILL WANT UA TODAY? THANK YOU. ЕЛЕНА [phone]
[2022-02-09] MEDS ORDERED: SACU1TAB7 PO (10:46)
--- NOTE | 2022-02-09 11:26 | NUR ---
PAGE SENT PAGER ID: [phone] MESSAGE: [id number], ORIANAValarie CHILDERS, PT IS ON DOBUTAMINE GTT 8.244. CONTINUE WITH DISCHARGE ORDER? THANK YOU, ЕЛЕНА [phone]
--- NOTE | 2022-02-09 11:56 | NUR ---
PAGE SENT 3446M, DEUCE BRADY, HAS CARDIOLOGY CLEAR PT FOR DISCHARGE? THANK YOU, ЕЛЕНА X [phone]
[2022-02-09] MEDS ORDERED: CARV6.253 PO (13:48)
--- NOTE | 2022-02-09 14:24 | NUR ---
PT STABLE FOR DISCHARGE PER MD. DISCHARGE AND FOLLOW UP INSTRUCTIONS REVIEWED WITH PT. APPROPRIATE PAPERWORK SIGNED. BELONGINGS RETURNED TO PT. TELE AND BP BOXES REMOVED. PIVS REMOVED WITH TIP INTACT. PT WAS WHEELED TO A PRIVATE VEHICLE BY HOSPITAL STAFF. PT WAS DISCHARGED HOME.
== END 2022-02-09 14:22 | disposition home or self-care (01) | DRG 280 ==
LOC: ER 13:26 → ED HOLD 16:52 → EDBEDREQ 18:24 → PCU 3S 19:40
PROVIDERS: ADMIT Internal Medicine; ATTEND Internal Medicine
PROC: 5A2204Z Restoration of Cardiac Rhythm, Single (ICD-10-PCS; principal; 2022-02-08)
DX: I48.0 Paroxysmal atrial fibrillation (principal); I21.4 Non-ST elevation (NSTEMI) myocardial infarction; I50.23 Acute on chronic systolic (congestive) heart failure; I13.0 Hypertensive heart and chronic kidney disease with heart failure and stage 1 through stage 4 chronic kidney disease, or unspecified chronic kidney disease; N17.9 Acute kidney failure, unspecified; I48.19 Other persistent atrial fibrillation; I42.0 Dilated cardiomyopathy; I25.5 Ischemic cardiomyopathy; I25.10 Atherosclerotic heart disease of native coronary artery without angina pectoris; D50.9 Iron deficiency anemia, unspecified; E11.22 Type 2 diabetes mellitus with diabetic chronic kidney disease; E78.00 Pure hypercholesterolemia, unspecified; I95.9 Hypotension, unspecified; E78.5 Hyperlipidemia, unspecified; Z60.2 Problems related to living alone; K57.90 Diverticulosis of intestine, part unspecified, without perforation or abscess without bleeding; I08.1 Rheumatic disorders of both mitral and tricuspid valves; M19.90 Unspecified osteoarthritis, unspecified site; K21.9 Gastro-esophageal reflux disease without esophagitis; N40.0 Benign prostatic hyperplasia without lower urinary tract symptoms; N18.9 Chronic kidney disease, unspecified; I49.5 Sick sinus syndrome; Z95.2 Presence of prosthetic heart valve; Z79.01 Long term (current) use of anticoagulants; Z95.1 Presence of aortocoronary bypass graft; Z88.8 Allergy status to other drugs, medicaments and biological substances; Z87.440 Personal history of urinary (tract) infections; Z79.899 Other long term (current) drug therapy; Z98.49 Cataract extraction status, unspecified eye
CPT/HCPCS: 36415; 71045; 80048; 80053; 81003; 82948; 83735; 83880; 84132; 84484; 85007; 85025; 85610; 85730; 87081; 92960; 93306; 94799; 96374; 96375; 97116; 97161; 97530; 99291; A6250; G0378; J0282; J1160; J1250; J1644; J2250; J2274; J3490; J7030

== ENCOUNTER 2022-11-16 23:04 | Inpatient (IN) | payer MEDICARE, OTHER ==
[~2022-11-16] VITALS: Ht 167.6 cm; Wt 97.7 kg
[~2022-11-16 23:04] MED LIST changes: +ASCO-482 PO; -ASPI-1265 PO; -ATOR10TA70 PO; +BUME1TAB8 PO; -BUME2TAB7 PO; -CARV25TA2 PO; +CARV6.253 PO; +DAPA10TA PO; -FERR325T28 PO; -FLAX10007 PO; -GLIP2.5T3 PO; +MAGN400T56 PO; -OMEP20CA16 PO; +SACU1TAB7 PO
[2022-11-16 23:23] LABS: EOSINOPHILS # (AUTO) 0.1 X10'3 (0-0.9); MONOCYTES # (AUTO) 1.2 X10'3 (0-0.9); NEUTROPHILS # (AUTO) 2.1 X10'3 (1.8-7.7); WHITE BLOOD COUNT 4.4 X10'3 (4.5-11.0)
[2022-11-16 23:24] LABS: BASOPHILS % (AUTO) 0.8 % (0-1); EOSINOPHILS % (AUTO) 1.2 % (0-6); HEMATOCRIT 27.6 % (42.0-52.0); LYMPHOCYTES % (AUTO) 22.1 % (21-51); MEAN CORPUSCULAR HEMOGLOBIN 37.4 PG (27.0-31.0); MEAN CORPUSCULAR HGB CONC 32.6 g/dL (33.0-36.5); MEAN CORPUSCULAR VOLUME 114.8 FL (78-98); MONOCYTES % (AUTO) 28.2 % (2-12); NEUTROPHILS % (AUTO) 47.7 % (42-75); PLATELET COUNT 138 X10'3 (140-440); RED CELL DISTRIBUTION WIDTH 19.3 % (11.5-14.5)
[2022-11-16 23:35] LABS: ALANINE AMINOTRANSFERASE 97 U/L (12-78); ALBUMIN 3.2 G/DL (3.4-5.0); ALBUMIN/GLOBULIN RATIO 0.7 (1.1-1.5); ALKALINE PHOSPHATASE 110 IU/L (46-116); ANION GAP 10 (8-16); ASPARTATE AMINO TRANSFERASE 58 U/L (10-37); BILIRUBIN,TOTAL 0.6 MG/DL (0.1-1.0); BLOOD UREA NITROGEN 51 MG/DL (7-18); BUN/CREATININE RATIO 23.4 (10.0-20.0); CALCIUM 8.5 MG/DL (8.5-10.1); CHLORIDE 104 MMOL/L (99-107); CREATININE 2.18 MG/DL (0.60-1.10); GLUCOSE 232 MG/DL (70-104); POTASSIUM 4.6 MMOL/L (3.5-5.1); SODIUM 139 MMOL/L (135-145); TOTAL CARBON DIOXIDE 24.7 MMOL/L (24-32); TOTAL PROTEIN 7.8 G/DL (6.4-8.2); eGFR 29 ML/MIN
[2022-11-16 23:44] LABS: ANISOCYTOSIS 2+; MAGNESIUM 2.5 MG/DL (1.5-2.4); PLATELET ESTIMATE DECREASED; SMUDGE CELLS FEW; TOTAL CELLS COUNTED 100
[2022-11-16 23:45] LABS: ELLIPTOCYTES FEW; TEAR DROP CELLS FEW
[2022-11-17] MEDS ORDERED: HYDROcodone/acetaminophen 5mg/325mg tablet PO PRN (01:20)
[2022-11-17] MEDS ORDERED: diphenhydrAMINE 50 mg/ml inj IV PRN (01:20)
[2022-11-17] MEDS ORDERED: morphine 2 MG/ML inj. syringe IV PRN ×2 (01:20)
[2022-11-17] MEDS ORDERED: acetaminophen 650mg rectal suppository RC PRN (01:20)
[2022-11-17] MEDS ORDERED: ondansetron/PF 4mg/2ml inj IV PRN (01:20)
[2022-11-17] MEDS ORDERED: magnesium hydroxide 30ml (MOM) UD suspension PO PRN (01:20)
[2022-11-17] MEDS ORDERED: HYDROcodone/acetaminophen 10/325mg tab PO PRN (01:20)
[2022-11-17] MEDS ORDERED: normal saline 1000ml 1,000 ML IV SCH (01:20)
[2022-11-17] MEDS ORDERED: ondansetron 4mg rapidly disintigrating tab PO PRN (01:20)
[2022-11-17] MEDS ORDERED: acetaminophen 325mg tablet PO PRN ×2 (01:20)
[2022-11-17] MEDS ORDERED: bisacodyl 10mg suppository rectal RC PRN (01:20)
[2022-11-17] MEDS ORDERED: diphenhydrAMINE 25mg capsule PO PRN (01:20)
[2022-11-17] MEDS ORDERED: mag hydrox/Alum hydrox/simeth 30ml oral suspension PO PRN (01:20)
[2022-11-17] MEDS ORDERED: dextrose 50%-water 50ml dispensing syringe IV PRN ×2 (01:25)
[2022-11-17] MEDS ORDERED: DEXTROSE 15 GM of carb/4 tabs (each vial/BOTTLE has 4 tablets) PO PRN ×2 (01:25)
[2022-11-17] MEDS ORDERED: MESSAGE TO PHARMACY PO ONE (01:25)
[2022-11-17] MEDS ORDERED: insulin Lispro (HumaLOG) vial - multi-dose SQ SCH (01:25)
[2022-11-17] MEDS ORDERED: glucagon, human recombinant 1mg kit SUBCUT PRN (01:25)
[2022-11-17 01:40] LABS: PHOSPHORUS 5.1 MG/DL (2.3-4.5)
[2022-11-17] MEDS ORDERED: OMEP20TA23 PO (02:19)
[2022-11-17] MEDS ORDERED: GABA-530 PO (02:19)
[2022-11-17] MEDS ORDERED: ATOR10TA70 PO (02:19)
[2022-11-17] MEDS ORDERED: ACET-812 PO (02:19)
[2022-11-17] MEDS ORDERED: FLO0.4C PO (02:19)
[2022-11-17] MEDS ORDERED: PROC5TAB10 PO (02:19)
[2022-11-17] MEDS ORDERED: Carvedilol PO (02:19)
[2022-11-17 02:37] LABS: APTT 39 SECONDS (22-32)
[2022-11-17] MEDS: ipratropium/albuterol 3ml nebule NEB SCH ×6 (03:07→23:22)
[2022-11-17] MEDS ORDERED: calcium chloride 100 MG/1 ML inj IV ONE (08:00)
[2022-11-17] MEDS ORDERED: epiNEPHrine 0.1mg/ml 10ml syringe ONE (08:00)
[2022-11-17] MEDS ORDERED: sodium bicarbonate (8.4%) 1 mEq/ml syringe ONE (08:00)
[2022-11-17] MEDS ORDERED: furosemide 10 MG/1 ML 10ml inj IV SCH (08:00)
[2022-11-17] MEDS: aspirin 81mg, enteric-coated 1 TAB TABLET.DR PO SCH (10:26)
[2022-11-17] MEDS: CefTRIAXone/D5W-Rocephin 1gm 50 ML IV SCH (10:26)
[2022-11-17] MEDS: docusate sod 100mg capsule PO SCH ×2 (10:26→20:07)
[2022-11-17] MEDS: pantoprazole 40mg Tablet.DR PO SCH (10:27)
[2022-11-17] MEDS: furosemide 40mg/4ml inj IV SCH ×2 (10:28→20:07)
[2022-11-17] MEDS: azithromycin/NS 500mg/250ml 250 ML IV SCH (10:35)
[2022-11-17] MEDS: DOBUTamine-DoBUTrex 500mg/D5W 250 ML IV SCH (10:59)
--- NOTE | 2022-11-17 11:23 | NUR ---
Report attempted, RODNEY Luque to call back.
--- NOTE | 2022-11-17 11:43 | NUR ---
Report given to RODNEY Luque, pt to go to room 8957K
[2022-11-17 12:24] VITALS: BP 121/76
[2022-11-17 13:00] VITALS: BP 121/76
[2022-11-17] MEDS ORDERED: benzonatate 100mg capsule PO PRN (13:30)
[2022-11-17 15:00] VITALS: BP 119/79
[2022-11-17 16:03] VITALS: BP 124/80
[2022-11-17 18:00] VITALS: BP 115/71
--- NOTE | 2022-11-17 18:41 | NUR ---
Problems reprioritized. Patient report given, questions answered & plan of care reviewed with ABDIAZIZ, RN.
[2022-11-17] MEDS ORDERED: proCHLORperazine 5mg tablet PO PRN (19:35)
[2022-11-17] MEDS: carVEDilol 12.5mg tablet PO SCH (20:07)
[2022-11-17] MEDS ORDERED: atorvastatin 10mg tablet PO SCH (21:00)
[2022-11-17] MEDS ORDERED: gabapentin 100mg capsule PO SCH (21:00)
[2022-11-17] MEDS ORDERED: insulin glargine (Lantus) pen - multi-dose SQ SCH (21:00)
[2022-11-17] MEDS ORDERED: temazepam 15mg capsule PO PRN (21:00)
[2022-11-17] MEDS ORDERED: tamsulosin 0.4mg capsule PO SCH (21:00)
[2022-11-17 22:30] VITALS: BP 117/70
[2022-11-18] MEDS ORDERED: non-formulary drug (Acetaminophen (Tylenol Extra Strength) 2 TABLET) PO SCH
--- NOTE | 2022-11-18 | NUR ---
Pt. is awake alert oriented states is "miserable" on 3 mcgs of Dobutamine gtt. Skin is cool and dry. Periperhal IV/SL x 2 in right arm intact. Lungs sound crackly clears moderately with lasix and breathing treatment. Monitor shows 100% V paced. Pt. is able to take po meds without difficulty. Uses urinal frequently yellow clear urine. 150-250ml at a time. No bm this evening. Plan transition to oral inotropes will continue to monitor BP.
[2022-11-18 02:10] VITALS: BP 112/70
[2022-11-18] MEDS: ipratropium/albuterol 3ml nebule NEB SCH ×3 (03:07→10:02)
[2022-11-18] MEDS: DOBUTamine-DoBUTrex 500mg/D5W 250 ML IV SCH ×2 (04:56→09:19)
[2022-11-18] MEDS ORDERED: calcium chloride 100 MG/1 ML inj IV ONE (06:00)
[2022-11-18] MEDS ORDERED: epiNEPHrine 0.1mg/ml 10ml syringe ONE (06:00)
[2022-11-18] MEDS ORDERED: sodium bicarbonate (8.4%) 1 mEq/ml syringe ONE (06:00)
--- NOTE | 2022-11-18 06:20 | NUR ---
Patient in room PCU 3018. I have received report from Sandra STEVENS and had the opportunity to ask questions and assume patient care.Bedside report completed.Pt sleeping, Dobutamine Gtt infusing. BP monitor in place and working order. Call light in reach. Addendum: 11/18/22 at 0623 by Lyric Martin RN Amended: Links added.
[2022-11-18 06:40] VITALS: BP 105/67
[2022-11-18 07:05] LABS: BASOPHILS % (AUTO) 0.5 % (0-1); EOSINOPHILS % (AUTO) 1.2 % (0-6); HEMATOCRIT 24.7 % (42.0-52.0); HEMOGLOBIN 7.9 g/dl (14.0-17.9); LYMPHOCYTES # (AUTO) 0.4 X10'3 (1.1-4.8); LYMPHOCYTES % (AUTO) 10.3 % (21-51); MEAN CORPUSCULAR HEMOGLOBIN 36.8 PG (27.0-31.0); MEAN CORPUSCULAR HGB CONC 32.1 g/dL (33.0-36.5); MEAN CORPUSCULAR VOLUME 114.4 FL (78-98); MEAN PLATELET VOLUME 9.3 FL (7.4-10.4); MONOCYTES # (AUTO) 1.1 X10'3 (0-0.9); MONOCYTES % (AUTO) 29.4 % (2-12); NEUTROPHILS # (AUTO) 2.2 X10'3 (1.8-7.7); NEUTROPHILS % (AUTO) 58.6 % (42-75); PLATELET COUNT 133 X10'3 (140-440); RED BLOOD COUNT 2.16 X10'6 (4.70-6.10); RED CELL DISTRIBUTION WIDTH 19.2 % (11.5-14.5); WHITE BLOOD COUNT 3.8 X10'3 (4.5-11.0)
[2022-11-18 07:19] LABS: ALANINE AMINOTRANSFERASE 96 U/L (12-78); ALBUMIN 2.9 G/DL (3.4-5.0); ALBUMIN/GLOBULIN RATIO 0.7 (1.1-1.5); ALKALINE PHOSPHATASE 107 IU/L (46-116); ANION GAP 11 (8-16); ASPARTATE AMINO TRANSFERASE 74 U/L (10-37); BILIRUBIN,TOTAL 0.7 MG/DL (0.1-1.0); BLOOD UREA NITROGEN 52 MG/DL (7-18); BUN/CREATININE RATIO 27.4 (10.0-20.0); CALCIUM 8.1 MG/DL (8.5-10.1); CHLORIDE 104 MMOL/L (99-107); GLUCOSE 121 MG/DL (70-104); SODIUM 139 MMOL/L (135-145); eGFR 34 ML/MIN
[2022-11-18 07:20] LABS: POTASSIUM 3.9 MMOL/L (3.5-5.1)
[2022-11-18] MEDS ORDERED: non-formulary drug (Omeprazole Magnesium (Prilosec Otc) 1 TAB) PO SCH (08:00)
[2022-11-18] MEDS ORDERED: DAPAGLIFLOZIN 10MG TABLET PO SCH (08:00)
[2022-11-18] MEDS: docusate sod 100mg capsule PO SCH (08:28)
[2022-11-18] MEDS: pantoprazole 40mg Tablet.DR PO SCH (08:28)
[2022-11-18] MEDS: aspirin 81mg, enteric-coated 1 TAB TABLET.DR PO SCH (08:28)
[2022-11-18] MEDS: carVEDilol 12.5mg tablet PO SCH (08:29)
[2022-11-18] MEDS: CefTRIAXone/D5W-Rocephin 1gm 50 ML IV SCH (08:31)
[2022-11-18] MEDS: furosemide 40mg/4ml inj IV SCH (08:31)
[2022-11-18] MEDS: azithromycin/NS 500mg/250ml 250 ML IV SCH (08:41)
[2022-11-18 08:42] LABS: PHOSPHORUS 5.1 MG/DL (2.3-4.5)
--- NOTE | 2022-11-18 10:24 | NUR ---
PAGER ID: [phone] MESSAGE: [id number] Poly. Pt states he can not breath. Has O2 sat ok. States he is going to . Color is ashen. Please call Lyric #[phone] joey. Thank you.
--- NOTE | 2022-11-18 10:30 | NUR ---
I reentered Pt room after paging MD. Found PT unresponsive. Letitia Arnett called. Code team to room. Pt intubated and transfer to ICU 2039. Family on the way to hospital. Family arrived and I escorted them to ICU hallway. I went back to room and gathered Pt belongings. I gave belongings to grandson and grand daughter Adalid; upper and lower dentures, cell phone and design engineer products, wallet with credit cards visible, Hearing aides and design engineer products.
--- NOTE | 2022-11-18 11:00 | NUR ---
Pt arrived to ICU Unresponsive and intubated HR 88 b/p 93/55 Epinephrine gtt on and .5 mcg and increased to keep mean 65 Mod amt of blood suctioned thru ET tube Lungs with crackles Dr Hart and Dr. Flores at bedside
--- NOTE | 2022-11-18 11:05 | NUR ---
Code blue called for loss of pulse See Code blue sheet Family arrived and spoken to by Dr. Hart 1137 Central line placed 1147 A line placed right femoral Pt would intermiently get back pulse and b/p With fluids and meds Sat poor on 100 % fio2
[2022-11-18 11:22] LABS: ANISOCYTOSIS 2+; PLATELET ESTIMATE DECREASED; POLYCHROMASIA 1+; TEAR DROP CELLS FEW; TOTAL CELLS COUNTED 100
[2022-11-18 11:30] VITALS: BP 99/62
[2022-11-18] MEDS ORDERED: NORepinephrine 8mg/ 250ml NS 250 ML IV ONE (11:49)
--- NOTE | 2022-11-18 12:00 | NUR ---
Family at bedside and Pt made patient comfort care
--- NOTE | 2022-11-18 12:10 | NUR ---
RN IS TO DOCUMENT YES TO ALL APPLICABLE AREAS Pronouncement of : 1. Time Physician Notified:[id number] 2. Date of :11/18/22 3. Time of : 121 4. DNR/Withdraw life support documented: 5. Monitor strip has been placed on chart:yes 6. Assessment process is of one-minute duration and includes following criteria: a) Patient is unresponsive to all stimuli: y b) Pupils fixed and non-reactive:y c) Auscultation of precordium reveals absence of heart tones:y d) Auscultation of lungs reveals absence of breath sounds:y e) Absence of blood pressure / all vital signs:y f) QRS complexes are not present on monitor / EKG strip:y g) Pacer spikes without capture:y 4. Comments:
[2022-11-18] MEDS ORDERED: rivaroxaban 15mg tablet PO SCH (18:00)
== END 2022-11-18 12:10 | DRG 208 ==
LOC: ER 23:05 → ED HOLD 11-17 01:21 → EDBEDREQ 11-17 09:58 → PCU 3S 11-17 12:23 → ICU 2S 11-18 11:11
PROVIDERS: ADMIT Family Medicine; ATTEND Family Medicine
PROC: 5A12012 Performance of Cardiac Output, Single, Manual (ICD-10-PCS; principal; 2022-11-18)
PROC: 5A1935Z Respiratory Ventilation, Less than 24 Consecutive Hours (ICD-10-PCS; 2022-11-18)
PROC: 0BH17EZ Insertion of Endotracheal Airway into Trachea, Via Natural or Artificial Opening (ICD-10-PCS; 2022-11-18)
PROC: 05HY33Z Insertion of Infusion Device into Upper Vein, Percutaneous Approach (ICD-10-PCS; 2022-11-18)
PROC: 04HY32Z Insertion of Monitoring Device into Lower Artery, Percutaneous Approach (ICD-10-PCS; 2022-11-18)
DX: J18.9 Pneumonia, unspecified organism (principal); I21.A1 Myocardial infarction type 2; I50.43 Acute on chronic combined systolic (congestive) and diastolic (congestive) heart failure; I13.0 Hypertensive heart and chronic kidney disease with heart failure and stage 1 through stage 4 chronic kidney disease, or unspecified chronic kidney disease; I16.1 Hypertensive emergency; N17.9 Acute kidney failure, unspecified; D61.818 Other pancytopenia; Z51.5 Encounter for palliative care; E11.22 Type 2 diabetes mellitus with diabetic chronic kidney disease; K57.90 Diverticulosis of intestine, part unspecified, without perforation or abscess without bleeding; I95.9 Hypotension, unspecified; E78.00 Pure hypercholesterolemia, unspecified; I49.5 Sick sinus syndrome; I25.10 Atherosclerotic heart disease of native coronary artery without angina pectoris; I25.5 Ischemic cardiomyopathy; I46.9 Cardiac arrest, cause unspecified; K21.9 Gastro-esophageal reflux disease without esophagitis; I48.91 Unspecified atrial fibrillation; N18.9 Chronic kidney disease, unspecified; Z79.01 Long term (current) use of anticoagulants; Z95.1 Presence of aortocoronary bypass graft; Z95.3 Presence of xenogenic heart valve; Z95.810 Presence of automatic (implantable) cardiac defibrillator; Z88.8 Allergy status to other drugs, medicaments and biological substances; Z79.899 Other long term (current) drug therapy
CPT/HCPCS: 36415; 71045; 80053; 82948; 83735; 83880; 84100; 84484; 85007; 85025; 85610; 85730; 92950; 93005; 93306; 94002; 94640; 94760; 99285; A4615; A6449; C1751; G0378; J0171; J0456; J0696; J1250; J1940; J3490; J7030; J7040